=== PATIENT | male | born 1950 | race Caucasian/White ===

== ENCOUNTER 2020-01-29 10:59 | Inpatient (IN) | payer MEDICARE, OTHER ==
[2020-01-29] MEDS ORDERED: Sodium Chloride 0.9% 1000 ML 1,000 ML ONE (12:13)
[2020-01-29] MEDS ORDERED: Sodium Chloride 0.9% 1000 ML 1,000 ML IV SCH (12:15)
--- NOTE | 2020-01-29 12:45 | XRAY ---
Indication: Cough. Comparison: April 26, 2017. Portable chest remains clear. Heart and mediastinal structures within normal limits. Bony thorax intact again with mild osteopenia and minimal degenerative changes. No new/acute findings. Impression: Continued nonacute chest.
[2020-01-29 13:07] LABS: Appearance CLOUDY (CLEAR); Bilirubin NEGATIVE (NEGATIVE); Blood LARGE Ery/ul (0-5); Glucose NEGATIVE (NEGATIVE); Ketones NEGATIVE (NEGATIVE); Leukocyte Esterase MODERATE (NEGATIVE); Mucus SLIGHT /HPF (NEGATIVE); Nitrite POSITIVE (NEGATIVE); Protein,Urine Dip NEGATIVE (Negative); Urobilinogen NEGATIVE mg/dL (0-1); WBC 26-50 /HPF (0-5)
[2020-01-29 13:09] LABS: RBC >101 /HPF (0-2)
[2020-01-29 13:48] LABS: Absolute Neutrophil Ct (ANC) 6.81 (1.4-6.9); BASOPHIL % 0.1 % (0.0-0.4); Basophil (Absolute #) 0.01 (0-0.4); Eosinophil % 0.1 % (0.00-5.0); Eosinophil (Absolute #) 0.01 (0-0.5); Hematocrit 37.5 % (42-50); Hemoglobin 14.1 gm/dl (12.5-18.0); Lymphocyte (Absolute #) 0.42 (1.0-4.6); Lymphocytes % 5.3 % (24.0-44.0); Mean Cell Volume 96.9 fl (78-100); Mean Corpuscular Hemoglobin 36.4 pg (26-32); Mean Corpuscular Hgb Concent. 37.6 g/dl (32-36); Mean Platelet Volume 10.4 fl (7.5-11.0); Monocyte (Absolute #) 0.69 (0.0-1.3); Monocytes % 8.7 % (0.0-12.0); Neutrophil % 85.8 % (36.0-66.0); Platelet Count 76 K/mm3 (150-450); Red Blood Count 3.87 M/mm3 (4.1-5.6); Red Cell Distribution Width 11.5 % (11.5-14.0); White Blood Count 7.9 K/mm3 (4.0-10.5)
[2020-01-29 14:02] LABS: INFLUENZA A NEGATIVE (NEGATIVE); INFLUENZA B NEGATIVE (NEGATIVE); RESPIRATORY SYNCTIAL VIRUS NEGATIVE (Negative)
[2020-01-29 14:02] LABS: INR 1.2 (0.8-3.0); PROTIME 13.6 SECONDS (8.83-12.87)
[2020-01-29 14:04] LABS: PTT 28.2 SECONDS (24.1-36.1)
[2020-01-29] MEDS ORDERED: ROCEPHIN 1 Gm-D5w 50 ml Bag** 1 G/50 ML IVPB IV STA (14:08)
[2020-01-29 14:14] LABS: ALBUMIN 3.4 g/dL (3.5-5.0); ANION GAP 16.2 MEQ/L (5-15); BILIRUBIN,TOTAL 1.8 mg/dL (0.2-1.3); Calcium 8.8 mg/dL (8.4-10.2); Creatinine 1 2.83 mg/dL (0.66-1.25); MAGNESIUM 2.8 mg/dL (1.6-2.3); Total Protein 6.3 g/dL (6.3-8.2)
[2020-01-29] MEDS ORDERED: ROCEPHIN 1 Gm-D5w 50 ml Bag** 1 G/50 ML IVPB IV ONE (14:17)
--- NOTE | 2020-01-29 14:46 | ERPHSYRPT ---
- History of Present Illness Time Seen by Provider: 01/29/20 11:45 Patient Subjective Stated Complaint: weakness Triage Nursing Assessment: Patient brought back to ED Via w/c and transferred to bed with assist of 1. Patient A+O x3. Patient's skin pink, warm and dry. Patient complains of increased weakness since last . Patient states he' s not been eating or drinking much. Patient's lungs clear a/p tony. Heart tones audible. Patient states he usually drinks a case of beer in two days but hasn't been able to in the past few days. Physician History: Is a 70-year-old male who presents with a generalized complaint of weakness. He says that since Wednesday he has not been feeling right. He did stop some [id number]-[id number] vitamins. He is not been eating or drinking for 3 days according to his family he has had no fever chills or sweats he has had no nausea vomiting or diarrhea otherwise he is a poor historian and does not want to be in the hospital. Timing/Duration: day(s) (4), week(s) Activites at Onset: none Pain Radiation: suprapubic Severity of Pain-Max: moderate Severity of Pain-Current: moderate Associated Symptoms: denies symptoms Prior abdominal problems: none Allergies/Adverse Reactions: No Known Drug Allergies Allergy (Unverified 01/29/20 11:35) Home Medications: Losartan/Hydrochlorothiazide [Losartan-Hctz 100-25 mg Tab] 1 tab PO DAILY [History] Nebivolol HCl 5 MG [Bystolic 5 MG] 10 mg PO HS 01/29/20 [History] Tamsulosin HCl 0.4 mg [Flomax 0.4 MG] 1 tab PO DAILY 01/29/20 [History] Vitamin B Complex [B Complex] 1 each PO DAILY 01/29/20 [History] Hx Influenza Vaccination/Date Given: Yes Hx Pneumococcal Vaccination/Date Given: No Immunizations Up to Date: Yes Travel Risk - International Travel Have you traveled outside of the country in past 3 weeks: No - Coronavirus Screening Are you exhibiting any of the following symptoms?: No Close contact with a COVID-19 positive Pt in past 14-21 Days: No - Past Medical History Pertinent Past Medical History: Yes Neurological History: No Pertinent History ENT History: No Pertinent History Cardiac History: Hypertension Respiratory History: No Pertinent History Endocrine Medical History: No Pertinent History Musculoskeletal History: No Pertinent History GI Medical History: No Pertinent History History: No Pertinent History Psycho-Social History: No Pertinent History Male Reproductive Disorders: Prostate Problems - Past Surgical History Past Surgical History: Yes Neuro Surgical History: No Pertinent History Cardiac: No Pertinent History Respiratory: No Pertinent History Gastrointestinal: No Pertinent History Genitourinary: Other Musculoskeletal: No Pertinent History Male Surgical History: No Pertinent History Other Surgical History: Prostate tuck - Social History Smoking Status: Current every day smoker How long have you smoked: years Exposure to second hand smoke: No Drug Use: none Patient Lives Alone: Yes - Review of Systems Constitutional: No Fever, No Chills Eyes: No Symptoms Ears, Nose, & Throat: No Symptoms Respiratory: No Cough, No Dyspnea Cardiac: No Chest Pain, No Edema, No Syncope Abdominal/Gastrointestinal: Abdominal Pain, No Nausea, No Vomiting, No Diarrhea Genitourinary Symptoms: No Dysuria Musculoskeletal: No Back Pain, No Neck Pain Skin: No Rash Neurological: No Dizziness, No Focal Weakness, No Sensory Changes Psychological: No Symptoms Endocrine: No Symptoms All Other Systems: Reviewed and Negative - Nursing Vital Signs Nursing Vital Signs: Initial Vital Signs Respiratory Rate 18 01/29/20 11:38 Blood Pressure 107/56 01/29/20 11:38 Pain Scale Pain Intensity 0 - Physical Exam General Appearance: no apparent distress, moderate distress, alert Eye Exam: PERRL/EOMI Ears, Nose, Throat Exam: pharynx normal, moist mucous membranes Neck Exam: normal inspection, supple Respiratory Exam: normal breath sounds, lungs clear Cardiovascular Exam: regular rate/rhythm, No edema Gastrointestinal/Abdomen Exam: soft, tenderness, other (Cana distended bladder ) Male Genital Exam: normal genitalia Back Exam: normal inspection, No CVA tenderness Extremity Exam: normal inspection, normal range of motion, No pedal edema Neurologic Exam: alert, oriented x 3, cooperative, sensation nml, No motor deficits Skin Exam: normal color, warm, dry, No rash SpO2: 100 - Course Nursing assessment & vital signs reviewed: Yes EKG Interpreted by Me: RATE (81), Sinus Rhythm, NORMAL AXIS, NORMAL INTERVALS, NORMAL QRS - Radiology Exams Chest X-ray Interpretation: Negative Ordered Tests: Active Orders 24 hr Category Date Time Status Travel Physical Therapist STAT Care 01/29/20 12:02 Active Catheter-Dorset Alfaro STAT Care 01/29/20 12:01 Active EKG-ER Only STAT Care 01/29/20 12:01 Active IV Insertion STAT Care 01/29/20 12:01 Active CHEST 1 VIEW (PORTABLE) Stat Exams 01/29/20 12:02 Completed BLOOD CULTURE Stat Lab 01/29/20 13:05 Received CBC W DIFF Stat Lab 01/29/20 12:01 Ordered CMP Stat Lab 01/29/20 12:01 Completed CULTURE,URINE Stat Lab 01/29/20 12:36 Ordered D-DIMER QUANTITATIVE Stat Lab 01/29/20 12:01 Completed Lactic Acid Stat Lab 01/29/20 12:01 Completed MAGNESIUM Stat Lab 01/29/20 12:01 Completed NT PRO BNP Stat Lab 01/29/20 12:01 Completed PROTIME WITH INR Stat Lab 01/29/20 12:01 Completed PTT Stat Lab 01/29/20 12:01 Completed TROPONIN Q3H Lab 01/29/20 12:15 Completed TROPONIN Q3H Lab 01/29/20 15:15 Ordered TROPONIN Q3H Lab 01/29/20 18:15 Ordered TROPONIN Q3H Lab 01/29/20 21:15 Ordered TROPONIN Q3H Lab 01/30/20 00:15 Ordered UA W/RFX UR CULTURE Stat Lab 01/29/20 12:36 Completed Medication Summary Generic Name Dose Route Start Last Admin Trade Name Freq PRN Reason Stop Dose Admin Sodium Chloride 1,000 mls @ 100 mls/hr 01/29/20 12:15 01/29/20 12:17 Sodium Chloride 0.9% 1000 Ml IV 02/28/20 12:14 100 mls/hr .Q10H BOBO Administration Discontinued Medications Generic Name Dose Route Start Last Admin Trade Name Freq PRN Reason Stop Dose Admin Ceftriaxone Sodium/Dextrose 1 g in 50 mls @ 100 mls/hr 01/29/20 14:08 14:21 Rocephin 1 Gm-D5w 50 Ml Bag IV 01/29/20 14:37 100 mls/hr STAT STA 100 mls/hr Administration Ceftriaxone Sodium/Dextrose Confirm 01/29/20 14:17 Rocephin 1 Gm-D5w 50 Ml Bag Administered 01/29/20 14:18 Dose 1 g in 50 mls @ ud IV .STK-MED ONE Lab/Rad Data: Laboratory Result Diagrams 01/29/20 12:01 Laboratory Results 01/29/20 01/29/20 01/29/20 Range/Units Unknown 12:36 12:15 PT (8.83-12.87) SECONDS INR (0.8-3.0) APTT (24.1-36.1) SECONDS D-Dimer (215-500) ng/mL Sodium (137-145) mmol/L Potassium (3.5-5.1) mmol/L Chloride (98-107) mmol/L Carbon Dioxide (22-30) mmol/L Anion Gap (5-15) MEQ/L BUN (9-20) mg/dL Creatinine (0.66-1.25) mg/dL Estimated GFR ML/MIN Glucose (74-106) mg/dL Lactic Acid (0.4-2.0) Calcium (8.4-10.2) mg/dL Magnesium (1.6-2.3) mg/dL Total Bilirubin (0.2-1.3) mg/dL AST (17-59) U/L ALT (0-50) U/L Alkaline Phosphatase (38-126) U/L Troponin I < 0.012 (0.000-0.034) ng/mL NT-Pro-B Natriuret Pep (0-900) pg/mL Serum Total Protein (6.3-8.2) g/dL Albumin (3.5-5.0) g/dL Urine Color YELLOW (YELLOW) Urine Appearance CLOUDY (CLEAR) Urine pH 5.0 (5-6) Ur Specific [place] 1.010 (1.005-1.025) Urine Protein NEGATIVE (Negative) Urine Ketones NEGATIVE (NEGATIVE) Urine Blood LARGE (0-5) Ezio/ul Urine Nitrite POSITIVE (NEGATIVE) Urine Bilirubin NEGATIVE (NEGATIVE) Urine Urobilinogen NEGATIVE (0-1) mg/dL Ur Leukocyte Esterase MODERATE (NEGATIVE) Urine WBC (Auto) 26-50 (0-5) /HPF Urine RBC (Auto) >101 (0-2) /HPF U Epithel Cells (Auto) NONE (FEW) /HPF Urine Bacteria (Auto) NONE (NEGATIVE) /HPF Urine Mucus (Auto) SLIGHT (NEGATIVE) /HPF Urine Culture Reflexed ORDERED SEPARATELY (NO) Urine Glucose NEGATIVE (NEGATIVE) mg/dL Influenza Type A Ag NEGATIVE (NEGATIVE) Influenza Type B Ag NEGATIVE (NEGATIVE) RSV (PCR) NEGATIVE (Negative) 01/29/20 01/29/20 01/29/20 Range/Units 12:01 12:01 12:01 PT 13.6 H (8.83-12.87) SECONDS INR 1.20 (0.8-3.0) APTT 28.2 (24.1-36.1) SECONDS D-Dimer 2298 H* (215-500) ng/mL Sodium 122 L (137-145) mmol/L Potassium 4.0 (3.5-5.1) mmol/L Chloride 89 L (98-107) mmol/L Carbon Dioxide 22 (22-30) mmol/L Anion Gap 16.2 H (5-15) MEQ/L BUN 87 H (9-20) mg/dL Creatinine 2.83 H (0.66-1.25) mg/dL Estimated GFR 23.7 ML/MIN Glucose 112 H (74-106) mg/dL Lactic Acid 2.6 H (0.4-2.0) Calcium 8.8 (8.4-10.2) mg/dL Magnesium 2.8 H (1.6-2.3) mg/dL Total Bilirubin 1.80 H (0.2-1.3) mg/dL AST 28 (17-59) U/L ALT 25 (0-50) U/L Alkaline Phosphatase 115 (38-126) U/L Troponin I (0.000-0.034) ng/mL NT-Pro-B Natriuret Pep 541 (0-900) pg/mL Serum Total Protein 6.3 (6.3-8.2) g/dL Albumin 3.4 L (3.5-5.0) g/dL Urine Color (YELLOW) Urine Appearance (CLEAR) Urine pH (5-6) Ur Specific [place] (1.005-1.025) Urine Protein (Negative) Urine Ketones (NEGATIVE) Urine Blood (0-5) Ezio/ul Urine Nitrite (NEGATIVE) Urine Bilirubin (NEGATIVE) Urine Urobilinogen (0-1) mg/dL Ur Leukocyte Esterase (NEGATIVE) Urine WBC (Auto) (0-5) /HPF Urine RBC (Auto) (0-2) /HPF U Epithel Cells (Auto) (FEW) /HPF Urine Bacteria (Auto) (NEGATIVE) /HPF Urine Mucus (Auto) (NEGATIVE) /HPF Urine Culture Reflexed (NO) Urine Glucose (NEGATIVE) mg/dL Influenza Type A Ag (NEGATIVE) Influenza Type B Ag (NEGATIVE) RSV (PCR) (Negative) - Progress Progress: improved - Departure Departure Disposition: In-patient Admission Clinical Impression: UTI (urinary tract infection), Urinary retention, Hyponatremia, Azotemia Condition: Fair Critical Care Time: No Referrals: GUERLINE RODRIGUEZ MD [Primary Care Provider] -
[2020-01-29] MEDS ORDERED: Zofran 4 MG/2 ML VIAL IV PRN (14:48)
[2020-01-29 14:50] LABS: Slide Review 1 YES
[2020-01-29] MEDS: Sodium Chloride 0.9% 1000 ML 1,000 ML IV SCH ×2 (16:20→23:24)
[2020-01-29] MEDS: Nicoderm CQ 21 MG TOP SCH (18:37)
--- NOTE | 2020-01-29 19:33 | PCM.HP ---
History of Present Illness - Chief Complaint Chief Complaint: UTI History of Present Illness: is a 70 year old male pt with no local MD who was admitted through ER with UTI. Pt was not feeling well for a week or less. In the ER he had a elias catheter placed with > 500 cc out of dark brown urine. Pt says there was some blood that came out initially. He is a very poor historian - he says, "I'm having a hard time answering these questions," and it's not clear if he is not able to answer them or he is just choosing not to. He does say his legs are "jumpy" recently. Per ER he is a heavy drinker (at least a 12pk a day) but has not been able to tolerate even alcohol for the past few days. He also smokes > 2 PPD. - Review of Systems All Other Systems: Unable due to condition (Pt not able/willing to answer questions) Medications & Allergies Home Medications: Home Medication List Losartan/Hydrochlorothiazide [Losartan-Hctz 100-25 mg Tab] 1 tab PO DAILY [History Confirmed 01/29/20] Nebivolol HCl 5 MG [Bystolic 5 MG] 10 mg PO HS 01/29/20 [History Confirmed 01/29/20] Tamsulosin HCl 0.4 mg [Flomax 0.4 MG] 1 tab PO DAILY 01/29/20 [History Confirmed 01/29/20] Vitamin B Complex [B Complex] 1 each PO DAILY 01/29/20 [History Confirmed ] Allergies/Adverse Reactions: Allergies Allergy/AdvReac Type Severity Reaction Status Date / Time No Known Drug Allergies Allergy Verified 01/29/20 16:27 - Past Medical History Past Medical History: Yes Neurological History: No Pertinent History ENT History: No Pertinent History Cardiac History: Hypertension Respiratory History: COPD, Emphysema Endocrine Medical History: No Pertinent History Musculoskelatal History: No Pertinent History GI Medical History: No Pertinent History History: No Pertinent History Pyscho-Social History: No Pertinent History Male Reproductive Disorders: Prostate Problems Comment: cysto uro lift for prostate has to wear depends pts family member states that pt has had multiple problems since having surgery 2018 - Past Surgical History Past Surgical History: Yes Neuro Surgical History: No Pertinent History Cardiac History: No Pertinent History Respiratory Surgery: No Pertinent History GI Surgical History: No Pertinent History Genitourinary Surgical Hx: Other Musculskeletal Surgical Hx: No Pertinent History Male Surgical History: No Pertinent History Other Surgical History: Prostate tuck january 2019 - Social History Smoking Status: Current every day smoker How long have you smoked: years Exposure to second hand smoke: No Alcohol: Daily Drug Use: none - Physical Exam Vital Signs: Vital Signs - 24 hr Temp Pulse Resp BP Pulse Ox 01/29/20 16:49 97.7 F 77 18 113/58 98 01/29/20 14:47 100 01/29/20 14:33 79 16 101/58 100 01/29/20 13:27 76 17 102/60 98 01/29/20 12:38 73 14 90/53 99 01/29/20 11:38 18 107/56 General Appearance: no apparent distress, thin Neurologic Exam: alert, cooperative (does cooperate with exam) Eye Exam: eyes nml inspection Ears, Nose, Throat Exam: dry mucous membranes Respiratory Exam: diminished breath sounds (fair air exchange), prolonged expirations, wheezing, No crackles/rales, No rhonchi Cardiovascular Exam: regular rate/rhythm, normal heart sounds, No friction rub Gastrointestinal/Abdomen Exam: soft, normal bowel sounds, No tenderness, No distention, No mass, No guarding, No rebound Extremity Exam: other (chronic venous stasis change bilat, no ruy edema. Covered with barrier cream, but RN reports previously had scaly, dry skin throughout.) Results - Labs Lab/Micro Results: Lab Results-Last 24 Hours 01/29/20 01/29/20 01/29/20 Range/Units 12:01 12:01 12:01 WBC 7.9 (4.0-10.5) K/mm3 RBC 3.87 L (4.1-5.6) M/mm3 Hgb 14.1 (12.5-18.0) gm/dl Hct 37.5 L (42-50) % MCV 96.9 (78-100) fl MCH 36.4 H (26-32) pg MCHC 37.6 H (32-36) g/dl RDW 11.5 (11.5-14.0) % Plt Count 76 L (150-450) K/mm3 MPV 10.4 (7.5-11.0) fl Gran % 85.8 H (36.0-66.0) % Eos # (Auto) 0.01 (0-0.5) Absolute Lymphs (auto) 0.42 L (1.0-4.6) Absolute Monos (auto) 0.69 (0.0-1.3) Lymphocytes % 5.3 L (24.0-44.0) % Monocytes % 8.7 (0.0-12.0) % Eosinophils % 0.1 (0.00-5.0) % Basophils % 0.1 (0.0-0.4) % Absolute Granulocytes 6.81 (1.4-6.9) Basophils # 0.01 (0-0.4) PT (8.83-12.87) SECONDS INR (0.8-3.0) APTT (24.1-36.1) SECONDS D-Dimer (215-500) ng/mL Sodium 122 L (137-145) mmol/L Potassium 4.0 (3.5-5.1) mmol/L Chloride 89 L (98-107) mmol/L Carbon Dioxide 22 (22-30) mmol/L Anion Gap 16.2 H (5-15) MEQ/L BUN 87 H (9-20) mg/dL Creatinine 2.83 H (0.66-1.25) mg/dL Estimated GFR 23.7 ML/MIN Glucose 112 H (74-106) mg/dL Lactic Acid 2.6 H (0.4-2.0) Calcium 8.8 (8.4-10.2) mg/dL Magnesium 2.8 H (1.6-2.3) mg/dL Total Bilirubin 1.80 H (0.2-1.3) mg/dL AST 28 (17-59) U/L ALT 25 (0-50) U/L Alkaline Phosphatase 115 (38-126) U/L Troponin I (0.000-0.034) ng/mL NT-Pro-B Natriuret Pep 541 (0-900) pg/mL Serum Total Protein 6.3 (6.3-8.2) g/dL Albumin 3.4 L (3.5-5.0) g/dL Urine Color (YELLOW) Urine Appearance (CLEAR) Urine pH (5-6) Ur Specific [place] (1.005-1.025) Urine Protein (Negative) Urine Ketones (NEGATIVE) Urine Blood (0-5) Ezio/ul Urine Nitrite (NEGATIVE) Urine Bilirubin (NEGATIVE) Urine Urobilinogen (0-1) mg/dL Ur Leukocyte Esterase (NEGATIVE) Urine WBC (Auto) (0-5) /HPF Urine RBC (Auto) (0-2) /HPF U Epithel Cells (Auto) (FEW) /HPF Urine Bacteria (Auto) (NEGATIVE) /HPF Urine Mucus (Auto) (NEGATIVE) /HPF Urine Culture Reflexed (NO) Urine Glucose (NEGATIVE) mg/dL Influenza Type A Ag (NEGATIVE) Influenza Type B Ag (NEGATIVE) RSV (PCR) (Negative) Slides for Path Review YES 01/29/20 01/29/20 01/29/20 Range/Units 12:01 12:15 12:36 WBC (4.0-10.5) K/mm3 RBC (4.1-5.6) M/mm3 Hgb (12.5-18.0) gm/dl Hct (42-50) % MCV (78-100) fl MCH (26-32) pg MCHC (32-36) g/dl RDW (11.5-14.0) % Plt Count (150-450) K/mm3 MPV (7.5-11.0) fl Gran % (36.0-66.0) % Eos # (Auto) (0-0.5) Absolute Lymphs (auto) (1.0-4.6) Absolute Monos (auto) (0.0-1.3) Lymphocytes % (24.0-44.0) % Monocytes % (0.0-12.0) % Eosinophils % (0.00-5.0) % Basophils % (0.0-0.4) % Absolute Granulocytes (1.4-6.9) Basophils # (0-0.4) PT 13.6 H (8.83-12.87) SECONDS INR 1.20 (0.8-3.0) APTT 28.2 (24.1-36.1) SECONDS D-Dimer 2298 H* (215-500) ng/mL Sodium (137-145) mmol/L Potassium (3.5-5.1) mmol/L Chloride (98-107) mmol/L Carbon Dioxide (22-30) mmol/L Anion Gap (5-15) MEQ/L BUN (9-20) mg/dL Creatinine (0.66-1.25) mg/dL Estimated GFR ML/MIN Glucose (74-106) mg/dL Lactic Acid (0.4-2.0) Calcium (8.4-10.2) mg/dL Magnesium (1.6-2.3) mg/dL Total Bilirubin (0.2-1.3) mg/dL AST (17-59) U/L ALT (0-50) U/L Alkaline Phosphatase (38-126) U/L Troponin I < 0.012 (0.000-0.034) ng/mL NT-Pro-B Natriuret Pep (0-900) pg/mL Serum Total Protein (6.3-8.2) g/dL Albumin (3.5-5.0) g/dL Urine Color YELLOW (YELLOW) Urine Appearance CLOUDY (CLEAR) Urine pH 5.0 (5-6) Ur Specific [place] 1.010 (1.005-1.025) Urine Protein NEGATIVE (Negative) Urine Ketones NEGATIVE (NEGATIVE) Urine Blood LARGE (0-5) Ezio/ul Urine Nitrite POSITIVE (NEGATIVE) Urine Bilirubin NEGATIVE (NEGATIVE) Urine Urobilinogen NEGATIVE (0-1) mg/dL Ur Leukocyte Esterase MODERATE (NEGATIVE) Urine WBC (Auto) 26-50 (0-5) /HPF Urine RBC (Auto) >101 (0-2) /HPF U Epithel Cells (Auto) NONE (FEW) /HPF Urine Bacteria (Auto) NONE (NEGATIVE) /HPF Urine Mucus (Auto) SLIGHT (NEGATIVE) /HPF Urine Culture Reflexed ORDERED SEPARATELY (NO) Urine Glucose NEGATIVE (NEGATIVE) mg/dL Influenza Type A Ag (NEGATIVE) Influenza Type B Ag (NEGATIVE) RSV (PCR) (Negative) Slides for Path Review 01/29/20 01/29/20 01/29/20 Range/Units 15:15 15:30 18:25 WBC (4.0-10.5) K/mm3 RBC (4.1-5.6) M/mm3 Hgb (12.5-18.0) gm/dl Hct (42-50) % MCV (78-100) fl MCH (26-32) pg MCHC (32-36) g/dl RDW (11.5-14.0) % Plt Count (150-450) K/mm3 MPV (7.5-11.0) fl Gran % (36.0-66.0) % Eos # (Auto) (0-0.5) Absolute Lymphs (auto) (1.0-4.6) Absolute Monos (auto) (0.0-1.3) Lymphocytes % (24.0-44.0) % Monocytes % (0.0-12.0) % Eosinophils % (0.00-5.0) % Basophils % (0.0-0.4) % Absolute Granulocytes (1.4-6.9) Basophils # (0-0.4) PT (8.83-12.87) SECONDS INR (0.8-3.0) APTT (24.1-36.1) SECONDS D-Dimer (215-500) ng/mL Sodium (137-145) mmol/L Potassium (3.5-5.1) mmol/L Chloride (98-107) mmol/L Carbon Dioxide (22-30) mmol/L Anion Gap (5-15) MEQ/L BUN (9-20) mg/dL Creatinine (0.66-1.25) mg/dL Estimated GFR ML/MIN Glucose (74-106) mg/dL Lactic Acid 2.6 H (0.4-2.0) Calcium (8.4-10.2) mg/dL Magnesium (1.6-2.3) mg/dL Total Bilirubin (0.2-1.3) mg/dL AST (17-59) U/L ALT (0-50) U/L Alkaline Phosphatase (38-126) U/L Troponin I < 0.012 < 0.012 (0.000-0.034) ng/mL NT-Pro-B Natriuret Pep (0-900) pg/mL Serum Total Protein (6.3-8.2) g/dL Albumin (3.5-5.0) g/dL Urine Color (YELLOW) Urine Appearance (CLEAR) Urine pH (5-6) Ur Specific [place] (1.005-1.025) Urine Protein (Negative) Urine Ketones (NEGATIVE) Urine Blood (0-5) Ezio/ul Urine Nitrite (NEGATIVE) Urine Bilirubin (NEGATIVE) Urine Urobilinogen (0-1) mg/dL Ur Leukocyte Esterase (NEGATIVE) Urine WBC (Auto) (0-5) /HPF Urine RBC (Auto) (0-2) /HPF U Epithel Cells (Auto) (FEW) /HPF Urine Bacteria (Auto) (NEGATIVE) /HPF Urine Mucus (Auto) (NEGATIVE) /HPF Urine Culture Reflexed (NO) Urine Glucose (NEGATIVE) mg/dL Influenza Type A Ag (NEGATIVE) Influenza Type B Ag (NEGATIVE) RSV (PCR) (Negative) Slides for Path Review 01/29/20 Range/Units Unknown WBC (4.0-10.5) K/mm3 RBC (4.1-5.6) M/mm3 Hgb (12.5-18.0) gm/dl Hct (42-50) % MCV (78-100) fl MCH (26-32) pg MCHC (32-36) g/dl RDW (11.5-14.0) % Plt Count (150-450) K/mm3 MPV (7.5-11.0) fl Gran % (36.0-66.0) % Eos # (Auto) (0-0.5) Absolute Lymphs (auto) (1.0-4.6) Absolute Monos (auto) (0.0-1.3) Lymphocytes % (24.0-44.0) % Monocytes % (0.0-12.0) % Eosinophils % (0.00-5.0) % Basophils % (0.0-0.4) % Absolute Granulocytes (1.4-6.9) Basophils # (0-0.4) PT (8.83-12.87) SECONDS INR (0.8-3.0) APTT (24.1-36.1) SECONDS D-Dimer (215-500) ng/mL Sodium (137-145) mmol/L Potassium (3.5-5.1) mmol/L Chloride (98-107) mmol/L Carbon Dioxide (22-30) mmol/L Anion Gap (5-15) MEQ/L BUN (9-20) mg/dL Creatinine (0.66-1.25) mg/dL Estimated GFR ML/MIN Glucose (74-106) mg/dL Lactic Acid (0.4-2.0) Calcium (8.4-10.2) mg/dL Magnesium (1.6-2.3) mg/dL Total Bilirubin (0.2-1.3) mg/dL AST (17-59) U/L ALT (0-50) U/L Alkaline Phosphatase (38-126) U/L Troponin I (0.000-0.034) ng/mL NT-Pro-B Natriuret Pep (0-900) pg/mL Serum Total Protein (6.3-8.2) g/dL Albumin (3.5-5.0) g/dL Urine Color (YELLOW) Urine Appearance (CLEAR) Urine pH (5-6) Ur Specific [place] (1.005-1.025) Urine Protein (Negative) Urine Ketones (NEGATIVE) Urine Blood (0-5) Ezio/ul Urine Nitrite (NEGATIVE) Urine Bilirubin (NEGATIVE) Urine Urobilinogen (0-1) mg/dL Ur Leukocyte Esterase (NEGATIVE) Urine WBC (Auto) (0-5) /HPF Urine RBC (Auto) (0-2) /HPF U Epithel Cells (Auto) (FEW) /HPF Urine Bacteria (Auto) (NEGATIVE) /HPF Urine Mucus (Auto) (NEGATIVE) /HPF Urine Culture Reflexed (NO) Urine Glucose (NEGATIVE) mg/dL Influenza Type A Ag NEGATIVE (NEGATIVE) Influenza Type B Ag NEGATIVE (NEGATIVE) RSV (PCR) NEGATIVE (Negative) Slides for Path Review - Radiology Impressions Radiology Exams & Impressions: Radiology Procedures Category Date Time Status CHEST 1 VIEW (PORTABLE) Stat Exams 01/29/20 12:02 Completed Assessment/Plan (1) Azotemia Current Visit: Yes Status: Acute Assessment & Plan: Unsure his baseline renal function, but eGFR 23.7 currently. Keep IV fluids all night and recheck in a.m. Code(s): R79.89 - OTHER SPECIFIED ABNORMAL FINDINGS OF BLOOD CHEMISTRY (2) UTI (urinary tract infection) Current Visit: Yes Status: Acute Qualifiers: Urinary tract infection type: acute cystitis Hematuria presence: with hematuria Qualified Code(s): N30.01 - Acute cystitis with hematuria Assessment & Plan: on rocephin day #1. Code(s): N39.0 - URINARY TRACT INFECTION, SITE NOT SPECIFIED (3) Urinary retention Current Visit: Yes Status: Acute Code(s): R33.9 - RETENTION OF URINE, UNSPECIFIED (4) Alcohol abuse Current Visit: Yes Status: Chronic Assessment & Plan: start ativan scheduled QID, has already been at least 2d since his last drink. Daughter is also concerned about this. Code(s): F10.10 - ALCOHOL ABUSE, UNCOMPLICATED (5) Tobacco use Current Visit: Yes Status: Chronic Assessment & Plan: nicotine patch placed. Code(s): Z72.0 - TOBACCO USE (6) COPD (chronic obstructive pulmonary disease) Current Visit: Yes Status: Chronic Qualifiers: COPD type: emphysema Emphysema type: unspecified Qualified Code(s): J43.9 - Emphysema, unspecified Assessment & Plan: He may have never had a diagnosis but clinically and by history has COPD. Start duonebs.
[2020-01-29] MEDS: DUONEB 0.5-3 MG/3 ml Neb IH PRN (20:19)
[2020-01-29] MEDS: Ativan 1 MG PO SCH (21:13)
[2020-01-29] MEDS: Bystolic 5 MG PO SCH (21:13)
[2020-01-30 05:08] LABS: Hematocrit 31.7 % (42-50); Hemoglobin 11.9 gm/dl (12.5-18.0); Mean Cell Volume 96.4 fl (78-100); Mean Corpuscular Hemoglobin 36.2 pg (26-32); Mean Corpuscular Hgb Concent. 37.5 g/dl (32-36); Mean Platelet Volume 9.6 fl (7.5-11.0); Platelet Count 91 K/mm3 (150-450); Red Blood Count 3.29 M/mm3 (4.1-5.6); Red Cell Distribution Width 11.4 % (11.5-14.0); White Blood Count 7.2 K/mm3 (4.0-10.5)
[2020-01-30 05:22] LABS: ALBUMIN 2.5 g/dL (3.5-5.0); ALKALINE PHOSPHATASE 86 U/L (38-126); ANION GAP 7.7 MEQ/L (5-15); BLOOD UREA NITROGEN 52 mg/dL (9-20); CHLORIDE 100 mmol/L (98-107); Calcium 8.1 mg/dL (8.4-10.2); Carbon Dioxide 24 mmol/L (22-30); Creatinine 1 0.89 mg/dL (0.66-1.25); Glucose 112 mg/dL (74-106); Potassium 3.2 mmol/L (3.5-5.1); SGOT/AST 22 U/L (17-59); SGPT/ALT 20 U/L (0-50); SODIUM 128 mmol/L (137-145)
[2020-01-30 05:35] LABS: Lymphocytes 13 % (24-44); Monocyte 6 % (0.0-12.0); Neutrophils 81 % (36.-66.); Total Cells Counted 100
[2020-01-30 05:36] LABS: Platelet Estimate NORMAL (NORMAL)
[2020-01-30] MEDS ORDERED: Sodium Chloride 0.9% 250 ML 250 ML IV PRN (08:00)
[2020-01-30] MEDS: Flomax 0.4 MG PO SCH (08:53)
[2020-01-30] MEDS: Ativan 1 MG PO SCH ×4 (08:53→20:29)
[2020-01-30] MEDS: hydroDIURIL 25 MG PO SCH (08:53)
[2020-01-30] MEDS: Cozaar 50 MG PO SCH (08:53)
[2020-01-30] MEDS: ROCEPHIN 1 Gm-D5w 50 ml Bag** 1 G/50 ML IVPB IV SCH (08:56)
[2020-01-30] MEDS ORDERED: NON-FORMULARY ITEM (Losartan/Hydrochlorothiazide [Losartan-Hctz 100-25 Mg Tab] 1 TAB) PO SCH ×2 (10:00)
[2020-01-30] MEDS: Sodium Chloride 0.9% 1000 ML 1,000 ML IV SCH ×2 (10:30→21:02)
--- NOTE | 2020-01-30 17:07 | PCM.NOTE ---
Date and Time: 01/30/20 170 Subjective Assessment: Pt is sitting up in chair, no complaints. His daughter says she thinks maybe the ativan is too much, he was barely able to stand to transfer to the chair and this is unusual for him. - Review of Systems Constitutional: No Fever Respiratory: Cough (chronic) Objective Exam General Appearance: no apparent distress, alert Neurologic Exam: oriented x 3, cooperative Skin Exam: normal color, warm, dry, No rash Ears, Nose, Throat Exam: moist mucous membranes Neck Exam: normal inspection Respiratory Exam: diminished breath sounds, prolonged expirations, wheezing (scattered expiratory), No crackles/rales, No rhonchi Cardiovascular Exam: regular rate/rhythm, normal heart sounds, No murmur Gastrointestinal/Abdomen Exam: other (urine in elias bag is clear to light yellow) Extremity Exam: No pedal edema, No swelling OBJECTIVE DATA Vital Signs: Vital Signs - 24 hr Temp Pulse Resp BP Pulse Ox 01/30/20 16:00 98.0 F 83 16 110/56 94 L 01/30/20 12:00 98.0 F 80 16 112/56 95 01/30/20 07:53 97.9 F 82 16 115/61 95 01/30/20 04:18 84/58 01/30/20 04:00 97.7 F 75 16 74/41 90 L 01/29/20 23:52 97.7 F 86 17 88/50 98 01/29/20 20:22 96 H 22 96 01/29/20 20:00 98 F 87 20 107/50 97 Pain Assessment - Last Documented Pain Intensity 0 Pain Scale Used 0-10 Pain Scale Intake and Output: Intake & Output 01/28/20 01/29/20 01/30/20 01/31/20 11:59 11:59 11:59 11:59 Intake Total 1645 120 Output Total 3100 1100 Balance -1455 -980 Weight 65 kg 68.9 kg Lab Results: Lab Results-Last 24 Hours 01/29/20 01/29/20 01/30/20 Range/Units 18:25 21:30 00:30 WBC (4.0-10.5) K/mm3 RBC (4.1-5.6) M/mm3 Hgb (12.5-18.0) gm/dl Hct (42-50) % MCV (78-100) fl MCH (26-32) pg MCHC (32-36) g/dl RDW (11.5-14.0) % Plt Count (150-450) K/mm3 MPV (7.5-11.0) fl Segmented Neutrophils (36.-66.) % Lymphocytes (Manual) (24-44) % Monocytes (Manual) (0.0-12.0) % Platelet Estimate (NORMAL) RBC Morphology Sodium (137-145) mmol/L Potassium (3.5-5.1) mmol/L Chloride (98-107) mmol/L Carbon Dioxide (22-30) mmol/L Anion Gap (5-15) MEQ/L BUN (9-20) mg/dL Creatinine (0.66-1.25) mg/dL Estimated GFR ML/MIN Glucose (74-106) mg/dL Lactic Acid (0.4-2.0) Calcium (8.4-10.2) mg/dL Total Bilirubin (0.2-1.3) mg/dL AST (17-59) U/L ALT (0-50) U/L Alkaline Phosphatase (38-126) U/L Troponin I < 0.012 < 0.012 < 0.012 (0.000-0.034) ng/mL Serum Total Protein (6.3-8.2) g/dL Albumin (3.5-5.0) g/dL 01/30/20 01/30/20 01/30/20 Range/Units 00:35 04:37 04:37 WBC 7.2 (4.0-10.5) K/mm3 RBC 3.29 L (4.1-5.6) M/mm3 Hgb 11.9 L (12.5-18.0) gm/dl Hct 31.7 L (42-50) % MCV 96.4 (78-100) fl MCH 36.2 H (26-32) pg MCHC 37.5 H (32-36) g/dl RDW 11.4 L (11.5-14.0) % Plt Count 91 L (150-450) K/mm3 MPV 9.6 (7.5-11.0) fl Segmented Neutrophils 81 H (36.-66.) % Lymphocytes (Manual) 13 L (24-44) % Monocytes (Manual) 6 (0.0-12.0) % Platelet Estimate NORMAL (NORMAL) RBC Morphology NORMAL Sodium 128 L (137-145) mmol/L Potassium 3.2 L (3.5-5.1) mmol/L Chloride 100 D (98-107) mmol/L Carbon Dioxide 24 (22-30) mmol/L Anion Gap 7.7 (5-15) MEQ/L BUN 52 H (9-20) mg/dL Creatinine 0.89 (0.66-1.25) mg/dL Estimated GFR > 60.0 ML/MIN Glucose 112 H (74-106) mg/dL Lactic Acid 0.8 (0.4-2.0) Calcium 8.1 L (8.4-10.2) mg/dL Total Bilirubin 1.00 (0.2-1.3) mg/dL AST 22 (17-59) U/L ALT 20 (0-50) U/L Alkaline Phosphatase 86 (38-126) U/L Troponin I (0.000-0.034) ng/mL Serum Total Protein 5.0 L (6.3-8.2) g/dL Albumin 2.5 L (3.5-5.0) g/dL Radiology Exams: Radiology Procedures Category Date Time Status CHEST 1 VIEW (PORTABLE) Stat Exams 01/29/20 12:02 Completed Assessment/Plan (1) Azotemia Current Visit: Yes Status: Resolved Code(s): R79.89 - OTHER SPECIFIED ABNORMAL FINDINGS OF BLOOD CHEMISTRY (2) UTI (urinary tract infection) Current Visit: Yes Status: Acute Qualifiers: Urinary tract infection type: acute cystitis Hematuria presence: with hematuria Qualified Code(s): N30.01 - Acute cystitis with hematuria Assessment & Plan: GNR, final cx result pending. On rocephin day #2. Will need to stay for ID of organism tomorrow. Code(s): N39.0 - URINARY TRACT INFECTION, SITE NOT SPECIFIED (3) Urinary retention Current Visit: Yes Status: Acute Assessment & Plan: He had a procedure with Dr. Wolf and dtr states he's never been the same with respect to his urinary status. He will need outpatient f/u with Dr. oWlf. Code(s): R33.9 - RETENTION OF URINE, UNSPECIFIED (4) Alcohol abuse Current Visit: Yes Status: Chronic Assessment & Plan: will decrease ativan dosage. Code(s): F10.10 - ALCOHOL ABUSE, UNCOMPLICATED (5) Tobacco use Current Visit: Yes Status: Chronic Code(s): Z72.0 - TOBACCO USE (6) COPD (chronic obstructive pulmonary disease) Current Visit: Yes Status: Chronic Qualifiers: COPD type: emphysema Emphysema type: unspecified Qualified Code(s): J43.9 - Emphysema, unspecified Assessment & Plan: will need duonebs to go home on, the lung sounds are better now.
[2020-01-30] MEDS: Nicoderm CQ 21 MG TOP SCH (17:44)
[2020-01-30] MEDS ORDERED: PHARMACY DOSING REQUIRED: VANCOMYCIN IV ONE (18:51)
[2020-01-30] MEDS: DUONEB 0.5-3 MG/3 ml Neb IH PRN (19:28)
[2020-01-30] MEDS ORDERED: Vancomycin 1GM/ Ns 250ML*** 250 ML IV ONE (20:25)
[2020-01-30] MEDS: Bystolic 5 MG PO SCH (20:30)
[2020-01-30] MEDS ORDERED: Klor Con 10 MEQ PO SCH (22:00)
[2020-01-30] MEDS: Vancomycin 1GM/ Ns 250ML*** 1 GM/250 ML IVPB IV SCH (22:51)
[2020-01-31 06:01] LABS: Hematocrit 32.1 % (42-50); Hemoglobin 11.5 gm/dl (12.5-18.0); Mean Cell Volume 99.1 fl (78-100); Mean Corpuscular Hemoglobin 35.5 pg (26-32); Mean Corpuscular Hgb Concent. 35.8 g/dl (32-36); Mean Platelet Volume 9.2 fl (7.5-11.0); Platelet Count 128 K/mm3 (150-450); Red Blood Count 3.24 M/mm3 (4.1-5.6); Red Cell Distribution Width 11.9 % (11.5-14.0); White Blood Count 10.1 K/mm3 (4.0-10.5)
[2020-01-31 06:19] LABS: ALBUMIN 2.7 g/dL (3.5-5.0); ALKALINE PHOSPHATASE 88 U/L (38-126); ANION GAP 4.5 MEQ/L (5-15); BLOOD UREA NITROGEN 24 mg/dL (9-20); CHLORIDE 104 mmol/L (98-107); Calcium 8.5 mg/dL (8.4-10.2); Carbon Dioxide 28 mmol/L (22-30); Creatinine 1 0.68 mg/dL (0.66-1.25); Glucose 146 mg/dL (74-106); SGOT/AST 25 U/L (17-59); SGPT/ALT 19 U/L (0-50); SODIUM 133 mmol/L (137-145); Total Protein 5.3 g/dL (6.3-8.2)
[2020-01-31] MEDS: Ativan 1 MG PO SCH (08:57)
[2020-01-31] MEDS: Klor Con 10 MEQ PO SCH ×2 (09:01→21:04)
[2020-01-31] MEDS: Cozaar 50 MG PO SCH (09:01)
[2020-01-31] MEDS: Flomax 0.4 MG PO SCH (09:02)
[2020-01-31] MEDS: hydroDIURIL 25 MG PO SCH (09:02)
[2020-01-31] MEDS: ROCEPHIN 1 Gm-D5w 50 ml Bag** 1 G/50 ML IVPB IV SCH (09:02)
[2020-01-31 10:00] LABS: BAND 6 % (0.0-2.0); Lymphocytes 8 % (24-44); Monocyte 1 % (0.0-12.0); Neutrophils 85 % (36.-66.); Platelet Estimate NORMAL (NORMAL); Total Cells Counted 100; Toxic Granulation 2+
[2020-01-31] MEDS: Vancomycin 1GM/ Ns 250ML*** 1 GM/250 ML IVPB IV SCH ×2 (10:57→21:03)
--- NOTE | 2020-01-31 13:27 | PCM.NOTE ---
Date and Time: 01/31/20 1321 Subjective Assessment: Pt has no complaints. Potassium this morning 3.0. Asya po. BCx came back yesterday all 4 bottles with GPCs. - Review of Systems Constitutional: No Fever Respiratory: Cough (chronic) Objective Exam General Appearance: no apparent distress, alert Neurologic Exam: oriented x 3, cooperative Skin Exam: normal color, warm, dry, No rash Eye Exam: eyes nml inspection Ears, Nose, Throat Exam: moist mucous membranes Neck Exam: normal inspection Respiratory Exam: diminished breath sounds, wheezing (faint scattered in upper lobes), No crackles/rales, No rhonchi Cardiovascular Exam: regular rate/rhythm, normal heart sounds, No murmur Extremity Exam: normal inspection, No pedal edema, No swelling, No tenderness Back Exam: normal inspection, No rash OBJECTIVE DATA Vital Signs: Vital Signs - 24 hr Temp Pulse Resp BP Pulse Ox 01/31/20 09:07 81 16 97 01/31/20 07:33 97.9 F 89 16 135/70 94 L 01/31/20 04:00 97.9 F 90 18 163/67 96 01/31/20 00:00 97.9 F 98 H 18 123/59 98 01/30/20 20:00 97.5 F 95 H 24 123/61 93 L 01/30/20 19:28 93 H 17 95 01/30/20 16:00 98.0 F 83 16 110/56 94 L Pain Assessment - Last Documented Pain Intensity 0 Pain Scale Used 0-10 Pain Scale Intake and Output: Intake & Output 01/29/20 01/30/20 01/31/20 02/01/20 11:59 11:59 11:59 11:59 Intake Total 1645 3486 240 Output Total 3100 3450 Balance -1455 36 240 Weight 65 kg 68.9 kg 68.6 kg Lab Results: Lab Results-Last 24 Hours 01/31/20 01/31/20 01/31/20 Range/Units 05:30 05:30 05:30 WBC 10.1 (4.0-10.5) K/mm3 RBC 3.24 L (4.1-5.6) M/mm3 Hgb 11.5 L (12.5-18.0) gm/dl Hct 32.1 L (42-50) % MCV 99.1 (78-100) fl MCH 35.5 H (26-32) pg MCHC 35.8 (32-36) g/dl RDW 11.9 (11.5-14.0) % Plt Count 128 L D (150-450) K/mm3 MPV 9.2 (7.5-11.0) fl Segmented Neutrophils 85 H (36.-66.) % Band Neutrophils 6 H (0.0-2.0) % Lymphocytes (Manual) 8 L (24-44) % Monocytes (Manual) 1 (0.0-12.0) % Toxic Granulation 2+ Platelet Estimate NORMAL (NORMAL) RBC Morphology NORMAL Sodium 133 L (137-145) mmol/L Potassium 3.0 L (3.5-5.1) mmol/L Chloride 104 (98-107) mmol/L Carbon Dioxide 28 (22-30) mmol/L Anion Gap 4.5 L (5-15) MEQ/L BUN 24 H (9-20) mg/dL Creatinine 0.68 (0.66-1.25) mg/dL Estimated GFR > 60.0 ML/MIN Glucose 146 H (74-106) mg/dL Calcium 8.5 (8.4-10.2) mg/dL Magnesium 2.1 (1.6-2.3) mg/dL Total Bilirubin 1.10 (0.2-1.3) mg/dL AST 25 (17-59) U/L ALT 19 (0-50) U/L Alkaline Phosphatase 88 (38-126) U/L Serum Total Protein 5.3 L (6.3-8.2) g/dL Albumin 2.7 L (3.5-5.0) g/dL Multi-Disciplinary Progress Notes: Multi-Disciplinary Progress Notes 01/31/20 11:04 Case Management Note by Lindsay Byers NO CHANGE IN DC PLANS AT THIS TIME, WILL CONTINUE TO MONITOR Initialized on 01/31/20 11:04 - END OF NOTE 01/31/20 08:34 Pharmacy Note by Alec Petit Pharmacokinetic dosing service Date: 01/31/20 Time: 829 Objective: Patient: Floor: Age: 70 yo Serum creatinine: 0.68 mg/dL Height: 68 Inches Weight (kg): 68 Diagnosis: GRAM + COCCI Relevant medical/social history: Cultures and sensitivities:BLOOD CULTURE Other labs: Assessment: IBW (kg): 68.40 Dosing wt(kg): 68 Estimated Creatinine clearance (ml/min): 98.6 CRCL method: Cockcroft and Gault using ibw(default). Drug selected: Vancomycin Loading dose (mg): 0 Vd (liters): 51.0 (factor used: 0.75 L/kg) Yovani (hr-1): 0.086 Half life (hrs): 8.06 Recommended dose: 1000 mg Interval: 12 hrs Infusion time (hrs): 1.5 Predicted peak (mcg/mL): 28.6 Predicted trough (mcg/mL): 11.59 Total body weight is being used for vancomycin dosing. Renal function is stable [X ] /unstable [ ] Recommendations: Give Vancomycin 1000 mg q 12 hrs with an expected Cpeak of 28.6 mcg/ml and an expected Ctrough of 11.59 mcg/ml Renal dosing of other antibiotics (review renal dosing of other medications and list guidelines here): Thank you for the consult, will continue to follow. Signature:KAYLEN PETTI Initialized on 01/31/20 08:34 - END OF NOTE Assessment/Plan (1) Bacteremia Current Visit: Yes Status: Acute Assessment & Plan: Pt started on vancomycin yesterday. Explained we need to await final culture results, now, for bacteremia. Pt would very much like to go home. Code(s): R78.81 - BACTEREMIA (2) UTI (urinary tract infection) Current Visit: Yes Status: Acute Qualifiers: Urinary tract infection type: acute cystitis Hematuria presence: with hematuria Qualified Code(s): N30.01 - Acute cystitis with hematuria Assessment & Plan: Klebsiella, bonilla sensitive (pt has been on rocephin - day #3 today). Code(s): N39.0 - URINARY TRACT INFECTION, SITE NOT SPECIFIED (3) Hypokalemia Current Visit: Yes Status: Acute Assessment & Plan: repleting po. Code(s): E87.6 - HYPOKALEMIA (4) Urinary retention Current Visit: Yes Status: Acute Assessment & Plan: May need to leave elias in at discharge and have pt f/u with urology. However, may want to try bladder training and d/c elias prior to discharge; pt may want to decide if he wants to chance needing the elias replaced. Code(s): R33.9 - RETENTION OF URINE, UNSPECIFIED (5) Alcohol abuse Current Visit: Yes Status: Chronic Code(s): F10.10 - ALCOHOL ABUSE, UNCOMPLICATED (6) Tobacco use Current Visit: Yes Status: Chronic Code(s): Z72.0 - TOBACCO USE (7) COPD (chronic obstructive pulmonary disease) Current Visit: Yes Status: Chronic Qualifiers: COPD type: emphysema Emphysema type: unspecified Qualified Code(s): J43.9 - Emphysema, unspecified
[2020-01-31] MEDS: Sodium Chloride 0.9% 1000 ML 1,000 ML IV SCH (14:55)
[2020-01-31] MEDS: Nicoderm CQ 21 MG TOP SCH (18:17)
[2020-01-31] MEDS: Bystolic 5 MG PO SCH (21:04)
[2020-01-31] MEDS: DUONEB 0.5-3 MG/3 ml Neb IH PRN (23:15)
[2020-02-01] MEDS: Ativan 0.5 MG PO SCH ×2 (03:06→09:21)
[2020-02-01 07:17] VITALS: BP 132/63; PULSE 95; O2SAT 97
[2020-02-01] MEDS: Sodium Chloride 0.9% 1000 ML 1,000 ML IV SCH (07:38)
[2020-02-01] MEDS: Klor Con 10 MEQ PO SCH (09:19)
[2020-02-01] MEDS: Cozaar 50 MG PO SCH (09:20)
[2020-02-01] MEDS: Flomax 0.4 MG PO SCH (09:20)
[2020-02-01] MEDS: hydroDIURIL 25 MG PO SCH (09:20)
[2020-02-01] MEDS: ROCEPHIN 1 Gm-D5w 50 ml Bag** 1 G/50 ML IVPB IV SCH (09:21)
[2020-02-01] MEDS ORDERED: TROUGH DRUG LEVELS IJ ONE (09:30)
--- NOTE | 2020-02-01 10:00 | PCM.DS ---
Discharge Summary Date of Admission: 01/29/20 16:00 Admitting Physician: DEVAN SLATER Primary Care Provider: GUERLINE RODRIGUEZ Allergies Allergies No Known Drug Allergies Allergy (Verified 01/29/20 16:27) Hospital Summary - Hospital Course Hospital Course: Pt is a 70 yo male alcoholic pt with HTN, no local MD, who was admitted through ER with UTI and urinary retention with acute renal failure. His initial eGFR was in the 20s; the next day it improved to normal. His initial output when the elias was placed was 500cc; per his daughter, he has chronic bladder issues since he had a prostate procedure. Pt was found to also have + blood cultures (GPC) so was started on vancomycin. This morning final BCx results are Staph haemolyticus, susceptible to clindamycin (and vancomycin) so he will be sent home on po antibiotics. Sending pt home with elias catheter anchored, to f/u with urology mayra. Pt was placed on ativan scheduled here, although it ended up making the pt somnolent so it was actually held this morning. - Vitals & Intake/Output Vital Signs: Vital Signs Temperature 98.1 F 02/01/20 07:16 Pulse Rate 95 H 02/01/20 07:16 Respiratory Rate 20 02/01/20 07:16 Blood Pressure 132/63 02/01/20 07:16 O2 Sat by Pulse Oximetry 97 02/01/20 07:16 Intake & Output: Intake & Output 01/29/20 01/30/20 01/31/20 02/01/20 11:59 11:59 11:59 11:59 Intake Total 1645 3486 2677 Output Total 3100 3450 2150 Balance -1455 36 527 Weight 65 kg 68.9 kg 68.6 kg 68.1 kg - Lab Result Diagrams: 01/31/20 05:30 01/31/20 05:30 Lab Results-Last 24 Hrs: Lab Results-Last 24 Hours 01/31/20 01/31/20 Range/Units 05:30 05:30 Segmented Neutrophils 85 H (36.-66.) % Band Neutrophils 6 H (0.0-2.0) % Lymphocytes (Manual) 8 L (24-44) % Monocytes (Manual) 1 (0.0-12.0) % Toxic Granulation 2+ Platelet Estimate NORMAL (NORMAL) RBC Morphology NORMAL Magnesium 2.1 (1.6-2.3) mg/dL Micro Results-Entire Visit: Microbiology 01/29/20 13:00 Blood Culture Gram Stain - Final Blood Blood Culture - Final Staphylococcus Haemolyticus 01/29/20 13:05 Blood Culture Gram Stain - Final Blood Blood Culture - Final Staphylococcus Haemolyticus 01/29/20 13:00 Urine Culture - Final Urine, Indwelling Catheter Klebsiella Pneumoniae - Procedures and Test Procedures and Tests throughout Hospitalization: Therapy Orders & Screens 01/29/20 20:22 Respiratory Therapy Assessment DAILY Comment: Diagnosis: UTI 01/31/20 10:04 PT Eval & Treat (MD Order) ROUTINE Reason for Eval:: weakness Diagnosis: UTI Discharge Exam General Appearance: no apparent distress, alert Neurologic Exam: oriented x 3, cooperative Eye Exam: eyes nml inspection Ears, Nose, Throat Exam: moist mucous membranes Respiratory Exam: normal breath sounds, lungs clear, No crackles/rales, No rhonchi, No wheezing Cardiovascular Exam: regular rate/rhythm, normal heart sounds, No murmur Gastrointestinal/Abdomen Exam: soft, normal bowel sounds, No tenderness, No distention, No mass, No guarding, No rebound Back Exam: normal inspection, No rash Extremity Exam: normal inspection, No pedal edema, No swelling Skin Exam: normal color, warm, dry, No rash Final Diagnosis/Problem List - Final Discharge Diagnosis/Problem (1) Bacteremia Current Visit: Yes Status: Acute Assessment & Plan: Staph haemolyticus, susceptible to the vancomycin he's been getting. Home on cl indamycin for 1 week. Code(s): R78.81 - BACTEREMIA (2) UTI (urinary tract infection) Current Visit: Yes Status: Acute Assessment & Plan: Treated with rocphin, adequately (today is day #4). Code(s): N39.0 - URINARY TRACT INFECTION, SITE NOT SPECIFIED (3) Hypokalemia Current Visit: Yes Status: Acute Assessment & Plan: rechecking. Now on potassium supplement. Code(s): E87.6 - HYPOKALEMIA (4) Urinary retention Current Visit: Yes Status: Chronic Assessment & Plan: following with urology mayra Code(s): R33.9 - RETENTION OF URINE, UNSPECIFIED (5) Alcohol abuse Current Visit: Yes Status: Chronic Code(s): F10.10 - ALCOHOL ABUSE, UNCOMPLICATED (6) Tobacco use Current Visit: Yes Status: Chronic Code(s): Z72.0 - TOBACCO USE (7) COPD (chronic obstructive pulmonary disease) Current Visit: Yes Status: Chronic - Discharge Disposition: Home, Self-Care Condition: Good Prescriptions: New Clindamycin HCl 300 mg PO QID #28 capsule Potassium Chloride 10 Meq Tab* [Klor Con 10 MEQ] 20 meq PO BID #60 tab Continue Vitamin B Complex [B Complex] 1 each PO DAILY Tamsulosin HCl 0.4 mg [Flomax 0.4 MG] 1 tab PO DAILY Nebivolol HCl 5 MG [Bystolic 5 MG] 10 mg PO HS Losartan/Hydrochlorothiazide [Losartan-Hctz 100-25 mg Tab] 1 tab PO DAILY Follow up with: GUERLINE RODRIGUEZ MD [Primary Care Provider] - 02/08/20 1:45 pm
[2020-02-01] MEDS: Vancomycin 1GM/ Ns 250ML*** 1 GM/250 ML IVPB IV SCH (10:05)
[2020-02-01 12:02] LABS: ANION GAP 6.8 MEQ/L (5-15); BLOOD UREA NITROGEN 11 mg/dL (9-20); CHLORIDE 104 mmol/L (98-107); Calcium 8.3 mg/dL (8.4-10.2); Carbon Dioxide 29 mmol/L (22-30); Creatinine 1 0.53 mg/dL (0.66-1.25); Glucose 107 mg/dL (74-106); Potassium 3.1 mmol/L (3.5-5.1); SODIUM 136 mmol/L (137-145)
== END 2020-02-01 11:30 | disposition home or self-care (01) | DRG 872 ==
LOC: ED 10:59 → OBSVTOIN 16:00 → MED SURG 16:00
PROVIDERS: ADMIT Family Medicine; ATTEND Family Medicine
DX: R78.81 Bacteremia (principal); N39.0 Urinary tract infection, site not specified; R53.1 Weakness; I10 Essential (primary) hypertension; R33.9 Retention of urine, unspecified; E87.6 Hypokalemia; J44.9 Chronic obstructive pulmonary disease, unspecified; R79.89 Other specified abnormal findings of blood chemistry; F10.10 Alcohol abuse, uncomplicated; Z72.0 Tobacco use; Z79.899 Other long term (current) drug therapy
CPT/HCPCS: 36000; 36415; 51702; 71045; 80048; 80053; 80202; 81001; 83605; 83735; 83880; 84484; 85025; 85379; 85610; 85730; 87040; 87077; 87086; 87186; 87631; 93005; 93041; 94640; 94760; 96360; 96365; 99285; J0696; J3370; A9270-GY

== ENCOUNTER 2020-02-28 15:44 | Emergency (ER) | payer MEDICARE, OTHER ==
[2020-02-28 16:00] VITALS: BP 129/70; PULSE 93; O2SAT 99
--- NOTE | 2020-02-28 16:41 | ERPHSYRPT ---
- History of Present Illness Time Seen by Provider: 02/28/20 16:00 Source: patient Patient Subjective Stated Complaint: Pt had a TURP done last Wednesday and the catheter was removed yesterday and pt has been unable to urinate any significant quantity and has also been leaking Triage Nursing Assessment: Pt brought to the ER by his daughter, pt unable to urinate any significant quantity, denies pain but states that he has discomfort, vitals wnl, skin n/w/d, denies pain to the abdomen with palpatation, doesn't appear to be in any distress Physician History: Patient is a 70-year-old male who presents to our ED with urinary retention. Patient had a TURP procedure done last Wednesday. Patient followed up with his urologist yesterday and the indwelling catheter was removed. Patient is here as he is unable to urinate. Patient feels pressure in his bladder. Patient called his urologist office they advised him to come to our ED for a bladder scan and possible urinary catheter. Patient voices no other complaints concerns at this time. No nausea or vomiting. No diarrhea. No rash. No trauma. No fevers. Daughter at bedside. They voiced no other complaints at this time. Timing/Duration: today Activites at Onset: none Quality: aching, other (Pressure sensation in the suprapubic area.) Onset Location: suprapubic Pain Radiation: none Severity of Pain-Max: moderate Severity of Pain-Current: mild Modifying Factors: Improves With: nothing Associated Symptoms: denies symptoms Prior abdominal problems: none Allergies/Adverse Reactions: No Known Drug Allergies Allergy (Verified 02/28/20 16:00) Home Medications: Losartan/Hydrochlorothiazide [Losartan-Hctz 100-25 mg Tab] 1 tab PO DAILY 01/29/20 [History] Nebivolol HCl 5 MG [Bystolic 5 MG] 10 mg PO HS 01/29/20 [History] Tamsulosin HCl 0.4 mg [Flomax 0.4 MG] 1 tab PO DAILY 01/29/20 [History] Vitamin B Complex [B Complex] 1 each PO DAILY 01/29/20 [History] Donepezil HCl [Aricept] 5 mg PO DAILY 02/28/20 [History] Hx Influenza Vaccination/Date Given: Yes Hx Pneumococcal Vaccination/Date Given: No Travel Risk - International Travel Have you traveled outside of the country in past 3 weeks: No - Coronavirus Screening Close contact with a COVID-19 positive Pt in past 14-21 Days: No - Past Medical History Pertinent Past Medical History: Yes Neurological History: No Pertinent History ENT History: No Pertinent History Cardiac History: Hypertension Respiratory History: COPD, Emphysema Endocrine Medical History: No Pertinent History Musculoskeletal History: No Pertinent History GI Medical History: No Pertinent History History: No Pertinent History Psycho-Social History: No Pertinent History Male Reproductive Disorders: Prostate Problems Other Medical History: cysto uro lift for prostate has to wear depends pts family member states that pt has had multiple problems since having surgery 2018 - Past Surgical History Past Surgical History: Yes Neuro Surgical History: No Pertinent History Cardiac: No Pertinent History Respiratory: No Pertinent History Gastrointestinal: No Pertinent History Genitourinary: Other Musculoskeletal: No Pertinent History Male Surgical History: No Pertinent History Other Surgical History: Prostate tuck january 2019. TURP February 2020 - Social History Smoking Status: Current every day smoker How long have you smoked: years Exposure to second hand smoke: Yes Drug Use: none Patient Lives Alone: No - Review of Systems Constitutional: No Symptoms, No Fever, No Chills Eyes: No Symptoms Ears, Nose, & Throat: No Symptoms Respiratory: No Symptoms, No Cough, No Dyspnea Cardiac: No Symptoms, No Chest Pain, No Edema, No Syncope Abdominal/Gastrointestinal: No Symptoms, No Abdominal Pain, No Nausea, No Vomiting, No Diarrhea Genitourinary Symptoms: No Symptoms, No Dysuria Musculoskeletal: No Symptoms, No Back Pain, No Neck Pain Skin: No Symptoms, No Rash Neurological: No Symptoms, No Dizziness, No Focal Weakness, No Sensory Changes Psychological: No Symptoms Endocrine: No Symptoms Hematologic/Lymphatic: No Symptoms Immunological/Allergic: No Symptoms All Other Systems: Reviewed and Negative - Nursing Vital Signs Nursing Vital Signs: Initial Vital Signs Temperature 98.5 F 02/28/20 15:52 Pulse Rate 93 H 02/28/20 15:52 Blood Pressure 129/70 02/28/20 15:52 O2 Sat by Pulse Oximetry 99 02/28/20 15:52 Pain Scale Pain Intensity 0 - Physical Exam General Appearance: no apparent distress, alert Eye Exam: PERRL/EOMI Ears, Nose, Throat Exam: pharynx normal, moist mucous membranes Neck Exam: normal inspection, supple Respiratory Exam: normal breath sounds, lungs clear Cardiovascular Exam: regular rate/rhythm, No edema Gastrointestinal/Abdomen Exam: soft, No tenderness Back Exam: normal inspection, No CVA tenderness Extremity Exam: normal inspection, normal range of motion, No pedal edema Neurologic Exam: alert, oriented x 3, cooperative, sensation nml, No motor deficits Skin Exam: normal color, warm, dry, No rash Lymphatic Exam: No adenopathy SpO2 Interpretation: normal SpO2: 99 O2 Delivery: Room Air - Course Nursing assessment & vital signs reviewed: Yes Ordered Tests: Active Orders 24 hr Category Date Time Status CULTURE,URINE Stat Lab 02/28/20 16:24 Uncollected UA W/RFX UR CULTURE Stat Lab 02/28/20 16:24 Uncollected - Progress Progress: improved Progress Note: 02/28/20 16:43 Alfaro catheter inserted. 1400 cc of urine neck pain. Urine was clear appearing. Urine sent for urinalysis. Patient did not want to wait for results so patient was discharged home. Will notify patient of results. Patient has an appointment scheduled with his urologist tomorrow. Patient is pain-free feels well and is ready for discharge. Counseled pt/family regarding: lab results, diagnosis, need for follow-up - Departure Departure Disposition: Home, Extended Care Facility Clinical Impression: Urinary retention Condition: Stable Critical Care Time: No Referrals: GUERLINE RODRIGUEZ MD [Primary Care Provider] - Additional Instructions: Please follow-up with your urologist as planned. Discharge/Care Plan ERA SINGH was seen on 02/28/20 in the Emergency Room. The patient was counseled regarding Diagnosis,Lab results, Imaging studies, need for follow up and when to return to the Emergency Room. Prescriptions given: Discharge Note I have spoken with the patient and/or caregivers. I have explained the patient's condition, diagnosis and treatment plan based on the information available to me at this time. I have answered the patient's and/or caregiver's questions and addressed any concerns. The patient and/or caregivers have as good understanding of the patient's diagnosis, condition and treatment plan as can be expected at this point. The vital signs have been stable. The patient's condition is stable and appropriate for discharge from the emergency department. The patient will pursue further outpatient evaluation with the primary care physician or other designated or consulting physician as outlined in the discharge instructions. The patient and/or caregivers are agreeable to this plan of care and follow-up instructions have been explained in detail. The patient and/or caregivers have received these instruction. The patient/and or caregivers are aware that any significant change in condition or worsening of symptoms should prompt an immediate return to this or the closest emergency department or call 911.
[2020-02-28 17:50] LABS: Appearance SLIGHTLY CLOUDY (CLEAR); Bilirubin NEGATIVE (NEGATIVE); Blood MODERATE Ery/ul (0-5); Glucose NEGATIVE (NEGATIVE); Ketones NEGATIVE (NEGATIVE); Leukocyte Esterase TRACE (NEGATIVE); Nitrite NEGATIVE (NEGATIVE); Protein,Urine Dip NEGATIVE (Negative); RBC 51-100 /HPF (0-2); Specific Gravity 1.006 (1.005-1.025); Urobilinogen NEGATIVE mg/dL (0-1)
[2020-02-28 17:51] LABS: Bacteria NONE SEEN /HPF (NEGATIVE)
== END 2020-02-28 16:47 | disposition home or self-care (01) ==
LOC: ED 15:44
DX: R33.9 Retention of urine, unspecified (principal); Z98.890 Other specified postprocedural states; Z79.899 Other long term (current) drug therapy; I10 Essential (primary) hypertension; J44.9 Chronic obstructive pulmonary disease, unspecified
CPT/HCPCS: 51702; 81001; 87086; 99284

== ENCOUNTER 2022-04-02 07:56 | Emergency (ER) | payer MEDICARE, OTHER ==
--- NOTE | 2022-04-02 08:18 | ERPHSYRPT ---
- History of Present Illness Time Seen by Provider: 04/02/22 07:59 Source: patient, family Exam Limitations: no limitations Physician History: 72-year-old male with history of hypertension, hyperlipidemia, BPH, hemorrhagic cystitis with off-and-on hematuria for last 6 to 7 weeks, scheduled to have cystoscopy done this morning presented in the ER with increasing pain and inability to urinate since last night. Patient initially was able to urinate small amount more frequently but since yesterday it seems like he has a clot in the urethra which is blocking the flow of urine. Suprapubic pain with mild abdominal distention palpation. No fever or chills reported. Daughter wants patient to have catheter placed to help with his pain and wants to take him to [facility] Guadarrama office. Timing/Duration: week(s), gradual onset, worse Activites at Onset: rest Quality: sharpness Onset Location: suprapubic Pain Radiation: none Severity of Pain-Max: moderate Severity of Pain-Current: moderate Modifying Factors: Improves With: nothing Associated Symptoms: dysuria Prior abdominal problems: none Sexual intercourse history: non-contributory Allergies/Adverse Reactions: No Known Drug Allergies Allergy (Verified 02/28/20 16:00) Home Medications: Losartan/Hydrochlorothiazide [Losartan-Hctz 100-25 mg Tab] 1 tab PO DAILY 01/14 01/02 [History] Nebivolol HCl 5 MG [Bystolic 5 MG] 10 mg PO HS 01/29/20 [History] Tamsulosin HCl 0.4 mg [Flomax 0.4 MG] 1 tab PO DAILY 01/29/20 [History] Vitamin B Complex [B Complex] 1 each PO DAILY 01/29/20 [History] Donepezil HCl [Aricept] 5 mg PO DAILY 02/28/20 [History] Hx Influenza Vaccination/Date Given: Yes Hx Pneumococcal Vaccination/Date Given: No - Past Medical History Pertinent Past Medical History: Yes Neurological History: No Pertinent History ENT History: No Pertinent History Cardiac History: Hypertension Respiratory History: COPD, Emphysema Endocrine Medical History: No Pertinent History Musculoskeletal History: No Pertinent History GI Medical History: No Pertinent History History: No Pertinent History Psycho-Social History: No Pertinent History Male Reproductive Disorders: Prostate Problems Other Medical History: cysto uro lift for prostate has to wear depends pts family member states that pt has had multiple problems since having surgery 2018 - Past Surgical History Past Surgical History: Yes Neuro Surgical History: No Pertinent History Cardiac: No Pertinent History Respiratory: No Pertinent History Gastrointestinal: No Pertinent History Genitourinary: Other Musculoskeletal: No Pertinent History Male Surgical History: No Pertinent History Other Surgical History: Prostate tuck january 2019. TURP February 2020 - Social History Smoking Status: Current every day smoker How long have you smoked: years Exposure to second hand smoke: Yes Drug Use: none Patient Lives Alone: No - Review of Systems Constitutional: No Symptoms Eyes: No Symptoms Respiratory: No Symptoms Cardiac: No Symptoms Abdominal/Gastrointestinal: Abdominal Pain Genitourinary Symptoms: Dysuria, Hematuria Musculoskeletal: Arthralgias Skin: No Symptoms Neurological: No Symptoms Endocrine: No Symptoms Hematologic/Lymphatic: No Symptoms Immunological/Allergic: No Symptoms - Physical Exam General Appearance: no apparent distress, alert Eye Exam: PERRL/EOMI Ears, Nose, Throat Exam: normal ENT inspection Neck Exam: normal inspection, full range of motion Respiratory Exam: normal breath sounds, lungs clear Cardiovascular Exam: regular rate/rhythm, normal heart sounds Gastrointestinal/Abdomen Exam: soft, normal bowel sounds, tenderness (Suprapubic. Palpable bladder) Male Genital Exam: normal genitalia, circumcised Back Exam: normal inspection, normal range of motion Extremity Exam: normal inspection, normal range of motion, pelvis stable Neurologic Exam: alert, oriented x 3, cooperative Skin Exam: normal color SpO2 Interpretation: normal SpO2: 95 O2 Delivery: Room Air - Progress Progress: improved Progress Note: 04/02/22 08:17 I have placed daily 14 [place] catheter with blood mixed urine. Relieved patient's symptoms. Daughter is taking patient to Dr. Wolf office for cystoscopy. Counseled pt/family regarding: diagnosis, need for follow-up - Departure Departure Disposition: Home Clinical Impression: Urinary retention, Hemorrhagic cystitis Condition: Stable Critical Care Time: No Referrals: GUERLINE RODRIGUEZ MD [Primary Care Provider] - Follow Up with PCP/3 days Instructions: Blood in the Urine (Hematuria) in Adults Additional Instructions: Go to Dr. Guadarrama's office now for further evaluation of hematuria. Return to ER for worsening abdominal pain, difficulty urination etc.
[2022-04-02 08:23] VITALS: BP 133/70; PULSE 73; O2SAT 98
== END 2022-04-02 08:30 | disposition home or self-care (01) ==
LOC: ED 07:56
DX: N30.90 Cystitis, unspecified without hematuria (principal); R33.9 Retention of urine, unspecified; R10.2 Pelvic and perineal pain; E78.5 Hyperlipidemia, unspecified; I10 Essential (primary) hypertension; J43.9 Emphysema, unspecified; Z72.0 Tobacco use; Z79.899 Other long term (current) drug therapy
CPT/HCPCS: 51702; 99283

== ENCOUNTER 2023-02-22 13:27 | Emergency (ER) | payer MEDICARE, OTHER ==
[2023-02-22] MEDS ORDERED: Sodium Chloride 0.9% 1000 ML 1,000 ML IV STA (14:14)
[2023-02-22] MEDS ORDERED: Sodium Chloride 0.9% 1000 ML 1,000 ML ONE (14:37)
[2023-02-22 15:01] LABS: Absolute Neutrophil Ct (ANC) 3.22 x10^3/uL (1.4-6.9); BASOPHIL % 1.7 % (0.0-0.4); Basophil (Absolute #) 0.08 x10^3/uL (0-0.4); Eosinophil % 1.9 % (0.00-5.0); Eosinophil (Absolute #) 0.09 x10^3/uL (0-0.5); Hematocrit 40.2 % (42-50); Hemoglobin 14.1 g/dL (12.5-18.0); IMMATURE GRAN # 0.01 x10^3u/L (0.00-0.03); IMMATURE GRAN % 0.2 % (0.00-0.4); Lymphocyte (Absolute #) 0.92 x10^3/uL (1.0-4.6); Lymphocytes % 19.1 % (24.0-44.0); Mean Cell Volume 98.5 fL (78-100); Mean Corpuscular Hemoglobin 34.6 pg (26-32); Mean Corpuscular Hgb Concent. 35.1 g/dL (32-36); Mean Platelet Volume 10.4 fL (7.5-11.0); Monocytes % 10.4 % (0.0-12.0); Neutrophil % 66.7 % (36.0-66.0); Platelet Count 213 x10^3/uL (150-450); Red Blood Count 4.08 x10^6/uL (4.1-5.6); Red Cell Distribution Width 11.5 % (11.5-14.0); White Blood Count 4.8 x10^3/uL (4.0-10.5)
[2023-02-22 15:18] LABS: ALBUMIN 4.2 g/dL (3.5-5.0); ALKALINE PHOSPHATASE 336 U/L (38-126); AMYLASE 118 U/L (30-110); ANION GAP 15.6 MEQ/L (5-15); BLOOD UREA NITROGEN 18 mg/dL (9-20); CHLORIDE 95 mmol/L (98-107); Calcium 10.3 mg/dL (8.4-10.2); Carbon Dioxide 22 mmol/L (22-30); Creatinine 1 0.55 mg/dL (0.66-1.25); EST GLOMERULAR FILTRATION RATE > 60.0 ML/MIN; ETHYL ALCOHOL < 10 mg/dL (0-10); Glucose 125 mg/dL (74-106); LIPASE 455 U/L (23-300); Potassium 4.8 mmol/L (3.5-5.1); SGPT/ALT 79 U/L (0-50); SODIUM 128 mmol/L (137-145); Total Protein 6.9 g/dL (6.3-8.2)
--- NOTE | 2023-02-22 15:19 | ERPHSYRPT ---
- History of Present Illness Source: patient, other (Daughter x2) Exam Limitations: other (Poor historian) Patient Subjective Stated Complaint: Pt states "I feel fine.". Daughter states "he has had diarrhea, he is not eating well, he is not drinking. He is a beer drinker and he has not even been drinking that." Triage Nursing Assessment: Pt presented alert and oriented X 3, skin pwd. Pt ambulates with a slow shuffling gait. Pt able to speak in clear full sentences. Pt resting comfortalby on the bed. Physician History: 73 yo WM brought into ER by daughter w decreased po intake x 1 week. Pt has had some nausea/vomiting and resolved diarrhea. Fever/cough/coryza/chest pain/abdominal pain/dysuria/hematuria are all denied. Pt drinks 12 beers a day and smokes 1ppd. He has a h/o HTN/enlarged prostate/UTI/dementia. Timing/Duration: other (1 week) Severity: mild Modifying Factors: Improves With: nothing Associated Symptoms: denies symptoms, nausea, vomiting Allergies/Adverse Reactions: No Known Drug Allergies Allergy (Verified 02/28/20 16:00) Home Medications: Losartan/Hydrochlorothiazide [Losartan-Hctz 100-25 mg Tab] 1 tab PO DAILY 01/29/20 [History] Nebivolol HCl 5 MG [Bystolic 5 MG] 10 mg PO HS 01/29/20 [History] Vitamin B Complex [B Complex] 1 each PO DAILY 01/29/20 [History] Donepezil HCl [Aricept] 5 mg PO DAILY 02/28/20 [History] Vibegron [Gemtesa] 75 mg PO DAILY 02/22/23 [History] Hx Tetanus, Diphtheria Vaccination/Date Given: No Hx Influenza Vaccination/Date Given: No Hx Pneumococcal Vaccination/Date Given: No Immunizations Up to Date: No Travel Risk - International Travel Have you traveled outside of the country in past 3 weeks: No - Coronavirus Screening Are you exhibiting any of the following symptoms?: No Close contact with a COVID-19 positive Pt in past 14-21 Days: No - Vaccine Status Have you recieved a Covid-19 vaccination: Yes Drill Sharpener: Moderna - Vaccination Dates Date of 2cond Vaccination (if applicable): 2020 - Review of Systems Constitutional: No Symptoms Eyes: No Symptoms Ears, Nose, & Throat: No Symptoms Respiratory: No Symptoms Cardiac: No Symptoms Abdominal/Gastrointestinal: No Symptoms, Nausea, Vomiting Genitourinary Symptoms: No Symptoms Musculoskeletal: No Symptoms Skin: No Symptoms Neurological: No Symptoms Psychological: No Symptoms Endocrine: No Symptoms Hematologic/Lymphatic: No Symptoms Immunological/Allergic: No Symptoms - Past Medical History Pertinent Past Medical History: Yes Neurological History: No Pertinent History ENT History: No Pertinent History Cardiac History: Hypertension Respiratory History: COPD, Emphysema Endocrine Medical History: No Pertinent History Musculoskeletal History: No Pertinent History GI Medical History: No Pertinent History History: No Pertinent History Psycho-Social History: No Pertinent History Male Reproductive Disorders: Prostate Problems Other Medical History: cysto uro lift for prostate has to wear depends pts family member states that pt has had multiple problems since having surgery 2018 - Past Surgical History Past Surgical History: Yes Neuro Surgical History: No Pertinent History Cardiac: No Pertinent History Respiratory: No Pertinent History Gastrointestinal: No Pertinent History Genitourinary: Other Musculoskeletal: No Pertinent History Male Surgical History: No Pertinent History Other Surgical History: Prostate tuck january 2019. TURP February 2020 - Social History Smoking Status: Current every day smoker How long have you smoked: years Exposure to second hand smoke: Yes Drug Use: none Patient Lives Alone: No - Nursing Vital Signs Nursing Vital Signs: Initial Vital Signs Temperature 97.1 F 02/22/23 14:00 Pulse Rate 81 02/22/23 14:00 Respiratory Rate 20 02/22/23 14:00 Blood Pressure 111/56 02/22/23 14:00 O2 Sat by Pulse Oximetry 96 02/22/23 14:00 Pain Scale Pain Intensity 0 WNL - Physical Exam General Appearance: no apparent distress Eye Exam: PERRL/EOMI, eyes nml inspection Ears, Nose, Throat Exam: normal ENT inspection, TMs normal, pharynx normal, moist mucous membranes Neck Exam: normal inspection, non-tender, supple, full range of motion, No meningismus, No mass, No Brudzinski, No Kernig's Respiratory Exam: normal breath sounds, lungs clear, airway intact, No respiratory distress Cardiovascular Exam: regular rate/rhythm, normal peripheral pulses, murmur (2/6 KAIA) Gastrointestinal/Abdomen Exam: soft, normal bowel sounds, No tenderness Extremity Exam: normal inspection, normal range of motion, pelvis stable Neurologic Exam: alert, cooperative, android programmer II-XII nml as tested, sensation nml Skin Exam: normal color, warm, dry Lymphatic Exam: No adenopathy SpO2 Interpretation: normal SpO2: 100 O2 Delivery: Room Air - Course Nursing assessment & vital signs reviewed: Yes - CT Exams Abdomen/Pelvis CT Interpretation: Tele-radiologist Report (Hepatic and bone mets) Chest CT Interpretation: Tele-radiologist Report (R lung masses/Spine mets) Ordered Tests: Active Orders 24 hr Category Date Time Status ABDOMEN AND PELVIS W CONTRAST [CT] Stat Exams 02/22/23 16:18 Completed CHEST WITHOUT CONTRAST [CT] Stat Exams 02/22/23 17:59 Completed AMYLASE Stat Lab 02/22/23 14:12 Completed CBC W DIFF Stat Lab 02/22/23 14:12 Completed CMP Stat Lab 02/22/23 14:12 Completed ETHYL ALCOHOL Stat Lab 02/22/23 14:12 Completed LIPASE Stat Lab 02/22/23 14:12 Completed Lactic Acid Stat Lab 02/22/23 14:25 Completed Lactic Acid Stat Lab 02/22/23 16:31 Completed MAGNESIUM Stat Lab 02/22/23 14:12 Completed PROTIME WITH INR Stat Lab 02/22/23 14:12 Completed PTT Stat Lab 02/22/23 14:12 Completed TROPONIN Q4H Lab 02/22/23 14:12 Completed TROPONIN Q4H Lab 02/22/23 18:05 Completed UA W/RFX UR CULTURE Stat Lab 02/22/23 15:41 Completed Medication Summary Discontinued Medications Generic Name Dose Route Start Last Admin Trade Name Freq PRN Reason Stop Dose Admin Sodium Chloride 1,000 mls @ 999 mls/hr 02/22/23 14:14 02/22/23 15:41 Sodium Chloride 0.9% 1000 Ml IV 02/22/23 15:14 Infused .Q1H1M STA Infusion Sodium Chloride Confirm 02/22/23 14:37 Sodium Chloride 0.9% 1000 Ml Administered 02/22/23 14:38 Dose 1,000 mls @ ud .ROUTE .STK-MED ONE Nicotine 21 mg 02/22/23 18:03 02/22/23 18:31 Nicotine 21 Mg/Patch Patch TOP 02/22/23 18:04 21 mg STAT ONE Administration Lab/Rad Data: Laboratory Result Diagrams 02/22/23 14:12 02/22/23 14:12 Laboratory Results 02/22/23 02/22/23 02/22/23 Range/Units 18:05 16:31 15:41 WBC (4.0-10.5) x10^3/uL RBC (4.1-5.6) x10^6/uL Hgb (12.5-18.0) g/dL Hct (42-50) % MCV (78-100) fL MCH (26-32) pg MCHC (32-36) g/dL RDW (11.5-14.0) % Plt Count (150-450) x10^3/uL MPV (7.5-11.0) fL Gran % (36.0-66.0) % Immature Gran % (Auto) (0.00-0.4) % Nucleat RBC Rel Count (0.00-0.1) % Eos # (Auto) (0-0.5) x10^3/uL Immature Gran # (Auto) (0.00-0.03) x10^3u/L Absolute Lymphs (auto) (1.0-4.6) x10^3/uL Absolute Monos (auto) (0.0-1.3) x10^3/uL Absolute Nucleated RBC (0.00-0.01) x10^3u/L Lymphocytes % (24.0-44.0) % Monocytes % (0.0-12.0) % Eosinophils % (0.00-5.0) % Basophils % (0.0-0.4) % Absolute Granulocytes (1.4-6.9) x10^3/uL Basophils # (0-0.4) x10^3/uL PT (9.4-12.5) SECONDS INR (0.8-3.0) APTT (25.1-36.5) SECONDS Sodium (137-145) mmol/L Potassium (3.5-5.1) mmol/L Chloride (98-107) mmol/L Carbon Dioxide (22-30) mmol/L Anion Gap (5-15) MEQ/L BUN (9-20) mg/dL Creatinine (0.66-1.25) mg/dL Estimated GFR ML/MIN Glucose (74-106) mg/dL Lactic Acid 3.7 H (0.4-2.0) Calcium (8.4-10.2) mg/dL Magnesium (1.6-2.3) mg/dL Total Bilirubin (0.2-1.3) mg/dL AST (17-59) U/L ALT (0-50) U/L Alkaline Phosphatase (38-126) U/L Troponin I < 0.012 (0.000-0.034) ng/mL Serum Total Protein (6.3-8.2) g/dL Albumin (3.5-5.0) g/dL Amylase (30-110) U/L Lipase (23-300) U/L Urine Color Yellow (Yellow) Urine Appearance Clear (Clear) Urine pH 6.0 (4.6-8.0) Ur Specific [place] 1.010 (1.005-1.030) Urine Protein 30 (Negative) Urine Glucose (UA) Negative (Negative) mg/dL Urine Ketones Negative (Negative) Urine Blood Negative (Negative) Urine Nitrite Negative (Negative) Urine Bilirubin Negative (Negative) Urine Urobilinogen 1.0 A (0.2) mg/dL Ur Leukocyte Esterase Trace A (Negative) U Hyaline Cast (Auto) 3-5 A (0-2) /LPF Urine Microscopic RBC 0-2 (0-5) /HPF Urine Microscopic WBC 0-2 (0-5) /HPF Ur Epithelial Cells None Seen (None Seen) /HPF Urine Bacteria None Seen (None Seen) /HPF Urine Culture Reflexed NO (NO) Ethyl Alcohol (0-10) mg/dL Influenza Type A Ag (NEGATIVE) Influenza Type B Ag (NEGATIVE) RSV (PCR) (NEGATIVE) SARS-CoV-2 (PCR) (NEGATIVE) 02/22/23 02/22/23 02/22/23 Range/Units 15:05 14:25 14:12 WBC (4.0-10.5) x10^3/uL RBC (4.1-5.6) x10^6/uL Hgb (12.5-18.0) g/dL Hct (42-50) % MCV (78-100) fL MCH (26-32) pg MCHC (32-36) g/dL RDW (11.5-14.0) % Plt Count (150-450) x10^3/uL MPV (7.5-11.0) fL Gran % (36.0-66.0) % Immature Gran % (Auto) (0.00-0.4) % Nucleat RBC Rel Count (0.00-0.1) % Eos # (Auto) (0-0.5) x10^3/uL Immature Gran # (Auto) (0.00-0.03) x10^3u/L Absolute Lymphs (auto) (1.0-4.6) x10^3/uL Absolute Monos (auto) (0.0-1.3) x10^3/uL Absolute Nucleated RBC (0.00-0.01) x10^3u/L Lymphocytes % (24.0-44.0) % Monocytes % (0.0-12.0) % Eosinophils % (0.00-5.0) % Basophils % (0.0-0.4) % Absolute Granulocytes (1.4-6.9) x10^3/uL Basophils # (0-0.4) x10^3/uL PT (9.4-12.5) SECONDS INR (0.8-3.0) APTT (25.1-36.5) SECONDS Sodium (137-145) mmol/L Potassium (3.5-5.1) mmol/L Chloride (98-107) mmol/L Carbon Dioxide (22-30) mmol/L Anion Gap (5-15) MEQ/L BUN (9-20) mg/dL Creatinine (0.66-1.25) mg/dL Estimated GFR ML/MIN Glucose (74-106) mg/dL Lactic Acid 3.9 H (0.4-2.0) Calcium (8.4-10.2) mg/dL Magnesium (1.6-2.3) mg/dL Total Bilirubin (0.2-1.3) mg/dL AST (17-59) U/L ALT (0-50) U/L Alkaline Phosphatase (38-126) U/L Troponin I < 0.012 (0.000-0.034) ng/mL Serum Total Protein (6.3-8.2) g/dL Albumin (3.5-5.0) g/dL Amylase (30-110) U/L Lipase (23-300) U/L Urine Color (Yellow) Urine Appearance (Clear) Urine pH (4.6-8.0) Ur Specific [place] (1.005-1.030) Urine Protein (Negative) Urine Glucose (UA) (Negative) mg/dL Urine Ketones (Negative) Urine Blood (Negative) Urine Nitrite (Negative) Urine Bilirubin (Negative) Urine Urobilinogen (0.2) mg/dL Ur Leukocyte Esterase (Negative) U Hyaline Cast (Auto) (0-2) /LPF Urine Microscopic RBC (0-5) /HPF Urine Microscopic WBC (0-5) /HPF Ur Epithelial Cells (None Seen) /HPF Urine Bacteria (None Seen) /HPF Urine Culture Reflexed (NO) Ethyl Alcohol (0-10) mg/dL Influenza Type A Ag NEGATIVE (NEGATIVE) Influenza Type B Ag NEGATIVE (NEGATIVE) RSV (PCR) NEGATIVE (NEGATIVE) SARS-CoV-2 (PCR) NEGATIVE (NEGATIVE) 02/22/23 02/22/23 02/22/23 Range/Units 14:12 14:12 14:12 WBC 4.8 (4.0-10.5) x10^3/uL RBC 4.08 L (4.1-5.6) x10^6/uL Hgb 14.1 (12.5-18.0) g/dL Hct 40.2 L (42-50) % MCV 98.5 (78-100) fL MCH 34.6 H (26-32) pg MCHC 35.1 (32-36) g/dL RDW 11.5 (11.5-14.0) % Plt Count 213 (150-450) x10^3/uL MPV 10.4 (7.5-11.0) fL Gran % 66.7 H (36.0-66.0) % Immature Gran % (Auto) 0.2 (0.00-0.4) % Nucleat RBC Rel Count 0.0 (0.00-0.1) % Eos # (Auto) 0.09 (0-0.5) x10^3/uL Immature Gran # (Auto) 0.01 (0.00-0.03) x10^3u/L Absolute Lymphs (auto) 0.92 L (1.0-4.6) x10^3/uL Absolute Monos (auto) 0.50 (0.0-1.3) x10^3/uL Absolute Nucleated RBC 0.00 (0.00-0.01) x10^3u/L Lymphocytes % 19.1 L (24.0-44.0) % Monocytes % 10.4 (0.0-12.0) % Eosinophils % 1.9 (0.00-5.0) % Basophils % 1.7 (0.0-0.4) % Absolute Granulocytes 3.22 (1.4-6.9) x10^3/uL Basophils # 0.08 (0-0.4) x10^3/uL PT 10.3 (9.4-12.5) SECONDS INR 0.94 (0.8-3.0) APTT 24.9 L (25.1-36.5) SECONDS Sodium 128 L (137-145) mmol/L Potassium 4.8 (3.5-5.1) mmol/L Chloride 95 L (98-107) mmol/L Carbon Dioxide 22 (22-30) mmol/L Anion Gap 15.6 H (5-15) MEQ/L BUN 18 (9-20) mg/dL Creatinine 0.55 L (0.66-1.25) mg/dL Estimated GFR > 60.0 ML/MIN Glucose 125 H (74-106) mg/dL Lactic Acid (0.4-2.0) Calcium 10.3 H (8.4-10.2) mg/dL Magnesium 2.0 (1.6-2.3) mg/dL Total Bilirubin 0.80 (0.2-1.3) mg/dL AST 698 H (17-59) U/L ALT 79 H (0-50) U/L Alkaline Phosphatase 336 H (38-126) U/L Troponin I (0.000-0.034) ng/mL Serum Total Protein 6.9 (6.3-8.2) g/dL Albumin 4.2 (3.5-5.0) g/dL Amylase 118 H (30-110) U/L Lipase 455 H (23-300) U/L Urine Color (Yellow) Urine Appearance (Clear) Urine pH (4.6-8.0) Ur Specific [place] (1.005-1.030) Urine Protein (Negative) Urine Glucose (UA) (Negative) mg/dL Urine Ketones (Negative) Urine Blood (Negative) Urine Nitrite (Negative) Urine Bilirubin (Negative) Urine Urobilinogen (0.2) mg/dL Ur Leukocyte Esterase (Negative) U Hyaline Cast (Auto) (0-2) /LPF Urine Microscopic RBC (0-5) /HPF Urine Microscopic WBC (0-5) /HPF Ur Epithelial Cells (None Seen) /HPF Urine Bacteria (None Seen) /HPF Urine Culture Reflexed (NO) Ethyl Alcohol < 10 (0-10) mg/dL Influenza Type A Ag (NEGATIVE) Influenza Type B Ag (NEGATIVE) RSV (PCR) (NEGATIVE) SARS-CoV-2 (PCR) (NEGATIVE) - Progress Progress Note: 02/22/23 21:11 Nursing note and vital signs reviewed No food or housing insecurities noted Additional history per daughters All labs reviewed and shared w pt/daughters CT results reviewed and shared w pt/daughters 1L NS bolus Dr. Rodriguez called while I was taking care of a critical pt and stated that he wanted to talk to the family. One of pt's daughters used to work for Dr. Rodriguez. Dr. Rodriguez will have pt visit office in AM and will discuss treatment options. Pt/daughters ok w discharge w Dr. Rodriguez f/u in AM. Pt stable upon discharge. 02/22/23 21:12 Counseled pt/family regarding: lab results, diagnosis, need for follow-up, rad results Medical Desision Making - Independent Historian Additional History obtained from: Child - Discussion of managment Care discussed with:: PCP Reviewed:: Test results, Need for additional workup Agreed on:: Treatment plan, need for follow-up Will see patient: In office - Diagnostic Testing Diagnostic test were ordered, analyzed, and reviewed by me: Yes Radiological Interpretation: Reviewed by me, Teleradiologist Report - Risk of complications The pt has a high risk of morbidity or mortality based on: Decision regarding hospitilization or escalation of hosp level of care - Departure Departure Disposition: Home Clinical Impression: Lung mass, Liver mass, Metastatic cancer to spine Condition: Stable Critical Care Time: No Referrals: GUERLINE RODRIGUEZ MD [Primary Care Provider] - Follow up/PCP as directed Instructions: Lung Cancer (DC), Liver Cancer (DC) Additional Instructions: Follow up with Dr. Rodriguez tomorrow Fluids Return to ER as needed
[2023-02-22 15:24] LABS: SGOT/AST 698 U/L (17-59)
[2023-02-22 15:45] LABS: INFLUENZA A NEGATIVE (NEGATIVE); INFLUENZA B NEGATIVE (NEGATIVE); RESPIRATORY SYNCTIAL VIRUS NEGATIVE (NEGATIVE); SARS-CoV-2 Xpert Express NEGATIVE (NEGATIVE)
[2023-02-22 15:57] LABS: INR 0.94 (0.8-3.0); PROTIME 10.3 SECONDS (9.4-12.5); PTT 24.9 SECONDS (25.1-36.5)
[2023-02-22 16:09] LABS: Appearance Clear (Clear); Bacteria None Seen /HPF (None Seen); Bilirubin Negative (Negative); Blood Negative (Negative); Epithelial Cells None Seen /HPF (None Seen); Glucose, Urine Negative (Negative); Ketones Negative (Negative); Leukocyte Esterase Trace (Negative); Nitrite Negative (Negative); Protein,Urine Dip 30 (Negative); RBC 0-2 /HPF (0-5); WBC 0-2 /HPF (0-5)
[2023-02-22 16:13] LABS: ADD URINE CULTURE? NO (NO)
--- NOTE | 2023-02-22 17:53 | XRAY ---
CLINICAL HISTORY:Elevated pancreatic enzymes. COMPARISON:None. TECHNIQUES:CT scan of the abdomen and pelvis was performed with IV contrast. 80 ml of Inj. ISOVUE (370 mg/ 100ml) was administered as an intravenous contrast agent. No oral contrast. Coronal and sagittal reconstructive images were also obtained. FINDINGS: Abdomen. Diffusely enlarged liver with parenchyma seen studded with multiple variable sized non-enhancing focal lesions seen scattered within both lobes. Multiple enlarged hepatic hilar LNs, the largest 16 x 13 mm. The portal vein, intrahepatic biliary radicals and the bile ducts are normal. The gallbladder is normal. No pericholecystic collection or radio-dense calculi in the gall bladder. The ascending colon, the transverse colon, and visualized small bowel loops are unremarkable. Noncomplicated colonic diverticulosis involving sigmoid and descending colon without evidence of diverticulitis. The spleen is average in size shows multiple calcified foci scattered throughout its parenchyma. Normal pancreas and adrenal glands are unremarkable. The kidneys are unremarkable. They are normal in size and shape. No calculi or hydronephrosis. Few bilateral simple renal cortical cysts were noted. Extensive atherosclerotic calcification of the abdominal aorta and iliac vessels. Pelvis. The urinary bladder is unremarkable. Markedly enlarged prostate showing heterogenous parenchymal density.Calcific foci noted within it. The pelvic vasculature is unremarkable. Multiple mixed osteolytic and sclerotic bony lesions seen scattered throughout the scanned bones. Visualized sections of lower chest shows no focal mass or consolidation. IMPRESSION: Hepatomegaly with multiple focal lesions mostly metastatic. Multiple enlarged hepatic hilar LNs. Splenic calcified foci, suggesting old granulomatous infection. Markedly enlarged prostate showing heterogenous parenchymal density. Mixed osteolytic and sclerotic metastatic bony lesions- PET CT is recommended. Rest of the findings as detailed above. Electronically Signed by: Catarino Alvarez MD. (02/22/2023 15:31:41 MASTER OF CEREMONIES)
[2023-02-22] MEDS ORDERED: Nicoderm CQ 21 MG TOP ONE (18:03)
[2023-02-22 18:32] VITALS: BP 121/73; PULSE 92
--- NOTE | 2023-02-22 18:55 | XRAY ---
Indication: Liver metastasis. Multiple contiguous axial images obtained through the chest without contrast. Comparison: June 16, 2013 Lungs now demonstrates diffuse pulmonary emphysema. Right upper and right lower lobe demonstrates new lung masses worrisome for malignancy, largest medial right upper lobe measuring at least 2.8 x 3.0 x 2.8 cm. Largest right lower lobe mass measures 1.9 x 1.9 x 1.9 cm and may be amenable to endoscopic biopsy. No infiltrate or effusion. Heart not enlarged with new scattered coronary calcifications. Aorta is now moderately arteriosclerotic without aneurysm. Again chunky right hilar calcified nodes hilar calcified nodes. Bony thorax intact with osteopenia and minimal degenerative changes throughout the spine. Axial spine demonstrates subtle mottled appearance similar to the lumbar spine as reported on same-day CT abdomen/pelvis, possible metastasis. Impression: 1. New right lung masses worrisome for malignancy. 2. Mottled appearance to axial spine concerning for metastasis. 3. New pulmonary emphysema and marked worsening diffuse arteriosclerotic disease. 4. Incidental chronic bony findings and old granulomatous disease.
[2023-02-22 19:52] VITALS: O2SAT 100
== END 2023-02-22 20:08 | disposition home or self-care (01) ==
LOC: ED 13:27
DX: R91.8 Other nonspecific abnormal finding of lung field (principal); R16.0 Hepatomegaly, not elsewhere classified; C79.51 Secondary malignant neoplasm of bone; R11.2 Nausea with vomiting, unspecified; I10 Essential (primary) hypertension; Z79.899 Other long term (current) drug therapy; Z72.0 Tobacco use; Z20.828 Contact with and (suspected) exposure to other viral communicable diseases
CPT/HCPCS: 0241U; 36000; 36415; 71250; 74177; 80053; 81001; 82077; 82150; 83605; 83690; 83735; 84484; 85025; 85610; 85730; 96360; 99284; A9270-GY